=== PATIENT | male | born 1955 | race Asian ===

== ENCOUNTER 2021-03-26 18:43 | Emergency (ER) | payer OTHER ==
[~2021-03-26] VITALS: Ht 167.6 cm; Wt 86.2 kg
--- NOTE | 2021-03-26 18:43 | NUR ---
PT BIBRA 99 C/O LOW BLOOD SUGAR 30MG/DL. D10 GIVEN BY EMS SPECIAL EDUCATION TEACHING ASSISTANT. PT IS AAOX4, NOT IN RESPIRATORY DISTRESS, HOOKED TO PROGRESSIVE CARE MANAGER, KEPT RESTED AND COMFORTABLE. WILL CONTINUE TO MONITOR.
[2021-03-26 19:51] LABS: CALCIUM, SERUM 8.6 mg/dL (8.5-10.1); CREATININE 1.5 mg/dL (0.6-1.3); POTASSIUM 3.2 mmol/L (3.5-5.1)
[2021-03-26 19:57] LABS: ALBUMIN 3.1 g/dL (3.4-5.0); BILIRUBIN,DIRECT 0.2 mg/dL (0.0-0.2); BILIRUBIN,TOTAL 0.9 mg/dL (0.2-1.0); TOTAL PROTEIN, SERUM 6.7 g/dL (6.4-8.2)
--- NOTE | 2021-03-26 20:13 | NUR ---
JOON VEGA, DAUGHTER PADMINI FERRARI
[2021-03-26 20:20] LABS: BASOPHILS % (AUTO) 0.3 % (0.0-2.0); EOSINOPHILS % (AUTO) 1.9 % (0.0-6.0); HEMATOCRIT 45 % (39-51); HEMOGLOBIN 14.6 g/dL (13.5-17.5); MEAN CORPUSCULAR HGB CONC 32 g/dl (31.0-36.0); MEAN CORPUSCULAR VOLUME 91 fL (80-96); MONOCYTES # (AUTO) 0.6 K/uL (0.1-1.30); MONOCYTES % (AUTO) 5.3 % (2.0-12.0); NEUTROPHILS % (AUTO) 83.5 % (43.0-81.0); PLATELET COUNT (AUTO) 165 K/uL (150-450); RED BLOOD CELL COUNT(AUTO) 4.98 MIL/uL (4.5-6.0); WHITE BLOOD COUNT (AUTO) 10.7 K/uL (4.3-11.0)
[2021-03-26] MEDS ORDERED: ASPIRIN 81 MG TAB.CHEW PO ONE (20:30)
[2021-03-26] MEDS ORDERED: ASPIRIN 81 MG TAB.CHEW ONE (20:31)
[2021-03-26] MEDS ORDERED: CARVEDILOL 12.5 MG TABLET ONE (21:55)
[2021-03-26] MEDS ORDERED: CARVEDILOL 6.25 MG TABLET PO ONE (22:00)
--- NOTE | 2021-03-26 23:05 | NUR ---
MARKETING DEVELOPER BRYAN - [phone]
--- NOTE | 2021-03-26 23:08 | NUR ---
TRANSFER INFO: PT GOING TO [facility] [address] [address], DIRECT ADMIT TO ROOM 214-A ACCEPTED BY DR MARIN, RN FOR REPORT [phone], PLEASE GIVE REPORT AFTER 2330 ETA TO FOLLOW
--- NOTE | 2021-03-26 23:22 | NUR ---
[facility] ETA 0200 HOURS
[2021-03-26] MEDS ORDERED: hydrALAZINE HCL IV 20 MG VIAL ONE (23:25)
[2021-03-26] MEDS ORDERED: hydrALAZINE HCL IV 20 MG VIAL IV ONE (23:30)
--- NOTE | 2021-03-27 00:10 | NUR ---
REPORT GIVEN TO LINDSEY AT [facility]
[2021-03-27 01:07] VITALS: BP 151/85
--- NOTE | 2021-03-27 01:08 | NUR ---
PT PICKED UP BY [facility] FOR TRANSFER TO [facility]. ALL V/S STABLE AT TIME OF TRANSFER
== END 2021-03-27 01:18 | disposition short-term general hospital (02) ==
LOC: ER 19:30
DX: E11.649 Type 2 diabetes mellitus with hypoglycemia without coma (principal); N17.9 Acute kidney failure, unspecified; E87.6 Hypokalemia; R07.9 Chest pain, unspecified; R94.31 Abnormal electrocardiogram [ECG] [EKG]; J98.11 Atelectasis; I11.9 Hypertensive heart disease without heart failure; Z20.822 Contact with and (suspected) exposure to COVID-19
CPT/HCPCS: 36415; 71045; 80048; 80076; 82962 ×3; 83735; 83880; 84484; 85025; 87081; 87426; 93005; 96374; 99285; C9803; J0360

== ENCOUNTER 2022-08-07 22:57 | Inpatient (IN) | payer OTHER ==
[~2022-08-07] VITALS: Ht 175.3 cm; Wt 105.7 kg
--- NOTE | 2022-08-07 23:00 | NUR ---
PATIENT SENT TO RADIOLOGY FOR CT
--- NOTE | 2022-08-07 23:15 | NUR ---
PT BROUGHT IN BY AMBULANCE FROM SNF, WITH CHIEF COMPLAINT OFGLF. RECEIVED MECH VENT PATIENT WITH SETTINGS PRESCRIBED IN NO ACUTE RESPIRATORY DISTRESS. HOOKED TO THE MONITOR AND WILL CONTINUE TO ASSESS. AWAITING MD MACHADO.
--- NOTE | 2022-08-07 23:30 | NUR ---
Pt received trached w/ Raynaley #6 [facility] pt placed on same ordered settings received from facility: AC mode, rate 22, VT 500, FIO2 35%, PEEP +5. No distress noted at this time. Airway patent and secured. Alarms set and audible. Ambubag at bedside. Pt to be transported to CT scan.
--- NOTE | 2022-08-08 01:30 | NUR ---
PATIENT SENT TO RADIOLOGY FOR CT W/ CONTRAST
[2022-08-08] MEDS ORDERED: IOHEXOL-300 100 ML VIAL IV ONE (02:13)
[2022-08-08] MEDS ORDERED: CT SWABBABLE VALVE TRANS SET 1 EA INFUS.SET MC ONE (02:14)
[2022-08-08] MEDS ORDERED: IV NS 0.9% 250 ML IV ONE (02:14)
--- NOTE | 2022-08-08 03:00 | NUR ---
SECURED IV ACCESS ON L UA #20; PATENT AND FLUSHING WELL
[2022-08-08] MEDS ORDERED: LEVOFLOXACIN 500 MG /D5W 100ML 500 MG/100 ML PIGGYBACK IV ONE (04:30)
[2022-08-08] MEDS ORDERED: CLINDAMYCIN 600 MG in IV D5W 100 ML IV ONE (04:30)
[2022-08-08] MEDS ORDERED: LEVOFLOXACIN 500 MG /D5W 100ML 100 ML IV ONE (04:41)
[2022-08-08] MEDS ORDERED: CLINDAMYCIN 900 MG/6 ML VIAL ONE (04:41)
[2022-08-08 04:42] LABS: BASOPHILS % (AUTO) 0.5 % (0.0-2.0); EOSINOPHILS % (AUTO) 2.2 % (0.0-6.0); HEMATOCRIT 29 % (39-51); HEMOGLOBIN 8.9 g/dL (13.5-17.5); LYMPHOCYTES # (AUTO) 0.5 K/uL (0.8-4.8); LYMPHOCYTES % (AUTO) 5.3 % (20.0-44.0); MEAN CORPUSCULAR HGB CONC 31 g/dl (31.0-36.0); MEAN CORPUSCULAR VOLUME 91 fL (80-96); MONOCYTES # (AUTO) 0.4 K/uL (0.1-1.30); MONOCYTES % (AUTO) 4.8 % (2.0-12.0); NEUTROPHILS # (AUTO) 7.6 K/uL (1.8-8.9); NEUTROPHILS % (AUTO) 87.2 % (43.0-81.0); PLATELET COUNT (AUTO) 157 K/uL (150-450); RED BLOOD CELL COUNT(AUTO) 3.14 MIL/uL (4.5-6.0); WHITE BLOOD COUNT (AUTO) 8.8 K/uL (4.3-11.0)
[2022-08-08 04:50] LABS: CALCIUM, SERUM 8.5 mg/dL (8.5-10.1); CREATININE 2.8 mg/dL (0.6-1.3); POTASSIUM 5.7 mmol/L (3.5-5.1)
--- NOTE | 2022-08-08 05:39 | NUR ---
CALLED [facility] FOR HIGHER LEVEL OF CARE TRANSFER. SPOKE WITH MARCELLA, CHARGE NURSE. NO ENT SERVICE AVAILABLE.
--- NOTE | 2022-08-08 05:59 | NUR ---
SPOKE WITH EDWARD FROM [facility] TO INITIATE HIGHER LEVEL OF CARE TRANSFER. CLINICALS FAXED TO [phone]
--- NOTE | 2022-08-08 06:51 | NUR ---
SPOKE WITH SYLVIA FROM [facility] TRANSFER TO REQUEST HIGHER LEVEL OF CARE. ADVICE TO CALL BACK AFTER 0730.
--- NOTE | 2022-08-08 07:33 | NUR ---
PER PT'S DAUGHTER, TRACH WAS DONE AT [facility].
--- NOTE | 2022-08-08 07:43 | NUR ---
COVID Swab collected, sent to lab
--- NOTE | 2022-08-08 08:06 | NUR ---
CALLED [facility] [phone] PER BRANDY AT [facility] [address] UNTIL FURTHER NOTICE.
--- NOTE | 2022-08-08 08:10 | NUR ---
CALLED [facility] [phone] CLOSED TO HIGHER LEVEL OF CARE PER TONE.
--- NOTE | 2022-08-08 08:16 | NUR ---
CALLED [facility] [place] TRANSF[facility] [phone] MAHAD WILL REACH TO [facility].
--- NOTE | 2022-08-08 08:50 | NUR ---
DR. LIN FROM [facility] SPEAKING WITH DR. ANN.
[2022-08-08] MEDS ORDERED: ACETAMINOPHEN 325 MG TABLET PO PRN (10:30)
[2022-08-08] MEDS ORDERED: MAGNESIUM HYDROXIDE 30 ML UDC PO PRN (10:30)
[2022-08-08] MEDS ORDERED: ZOLPIDEM TARTRATE 5 MG TABLET PO PRN (10:30)
[2022-08-08] MEDS ORDERED: ONDANSETRON HCL/PF 4 MG/2 ML VIAL IVP PRN (10:30)
[2022-08-08] MEDS ORDERED: Z GUARD REMEDY 4 OZ OINT TP PRN (10:30)
[2022-08-08] MEDS ORDERED: MAG HYDROX/AL HYDROX/SIMETH 30 ML UDC PO PRN (10:30)
[2022-08-08] MEDS ORDERED: ATEN25TA GT (10:59)
[2022-08-08] MEDS ORDERED: INSU100V3 SQ (10:59)
[2022-08-08] MEDS ORDERED: NITR0.4T48 SL (10:59)
[2022-08-08] MEDS ORDERED: NUT.237L30 GT (10:59)
[2022-08-08] MEDS ORDERED: CLON0.1T GT (10:59)
[2022-08-08] MEDS ORDERED: NA P133E RC (10:59)
[2022-08-08] MEDS ORDERED: HYDR-4076 GT (10:59)
[2022-08-08] MEDS ORDERED: MAGN400O6 GT (10:59)
[2022-08-08] MEDS ORDERED: ISOS10TA2 GT (10:59)
[2022-08-08] MEDS ORDERED: INSU100V7 SQ (10:59)
[2022-08-08] MEDS ORDERED: HEPA50007 SQ (10:59)
[2022-08-08] MEDS ORDERED: ACET-868 GT (10:59)
[2022-08-08] MEDS ORDERED: LORA-259 GT (10:59)
[2022-08-08] MEDS ORDERED: CHLO473M5 MM (10:59)
[2022-08-08] MEDS ORDERED: SUCR1ORA15 GT (10:59)
[2022-08-08] MEDS ORDERED: FAMO40TA7 GT (10:59)
[2022-08-08] MEDS ORDERED: DOCU-141 GT (10:59)
[2022-08-08] MEDS ORDERED: FOLI0.8T2 GT (10:59)
[2022-08-08] MEDS ORDERED: BISA10SU11 RC (10:59)
[2022-08-08] MEDS ORDERED: POLY17PO4 GT (10:59)
[2022-08-08] MEDS ORDERED: ATOR40TA GT (10:59)
[2022-08-08] MEDS ORDERED: ASPI-1169 GT (10:59)
[2022-08-08] MEDS ORDERED: IPRA4AER IH ×2 (10:59)
[2022-08-08] MEDS ORDERED: OXYC10TA49 GT (10:59)
[2022-08-08] MEDS ORDERED: GLUC1KIT IM (10:59)
[2022-08-08] MEDS ORDERED: ACET-2605 GT (10:59)
[2022-08-08] MEDS ORDERED: SODIUM POLYSTYRENE SULFONATE 15 G/60 ML BOTTLE GT ONE (11:00)
[2022-08-08] MEDS ORDERED: DEXTROSE 50%-WATER 50 ML DISP.SYRIN IV PRN (11:00)
--- NOTE | 2022-08-08 11:28 | NUR ---
GOT BED 310 IN 25 MINUTES
--- NOTE | 2022-08-08 11:49 | NUR ---
HAND OFF REPORT GIVEN TO MARLIN NORIEGA IN 3W
[2022-08-08] MEDS ORDERED: NITROGLYCERIN 0.4 MG/TAB BOTTLE SL PRN (12:00)
[2022-08-08] MEDS ORDERED: IPRATROPIUM NEB FS 0.5 MG/2.5 ML AMPUL.NEB NEB PRN (12:00)
[2022-08-08] MEDS: BLOOD SUGAR DIAGNOSTIC 1 EACH STRIP IN SCH ×2 (12:00→17:10)
[2022-08-08] MEDS ORDERED: NA PHOS,M-B/NA PHOS,DI-BA 1 EA ENEMA RC PRN (12:00)
[2022-08-08] MEDS ORDERED: oxyCODONE/APAP (5/325 MG) 1 UDTAB TABLET GT PRN (12:00)
[2022-08-08] MEDS ORDERED: MAGNESIUM HYDROXIDE 30 ML UDC GT PRN (12:00)
[2022-08-08] MEDS ORDERED: ALBUTEROL FS 2.5 MG/0.5 ML VIAL.NEB NEB PRN (12:00)
[2022-08-08] MEDS ORDERED: BISACODYL SUPP (10 MG) 10 MG/SUPP.RECT SUPP.RECT RC PRN (12:00)
[2022-08-08] MEDS ORDERED: ACETAMINOPHEN ES 500 MG TABLET GT PRN (12:00)
[2022-08-08] MEDS ORDERED: ACETAMINOPHEN 650 MG/20.3 ML UDC GT PRN (12:30)
--- NOTE | 2022-08-08 12:43 | NUR ---
PT TRANSFERED ACLS PROTOCOL RT PRESENT AND BAGING PT. VITALS REMAINED STABLE THROUGHT THE TRANSFER TAKEN TO [facility], 310 ADMITTING NURSE WAS PRESENT AT BEDSIDE.
--- NOTE | 2022-08-08 15:09 | NUR ---
RT Pt awake and alert. Pt refused ABG- No SOB noted.
[2022-08-08] MEDS: ISOSORBIDE DINITRATE (10MG) 10 MG TABLET GT SCH ×2 (15:43→17:00)
[2022-08-08] MEDS: LORAZEPAM 1 MG TABLET GT PRN (15:50)
[2022-08-08] MEDS: hydrALAZINE HCL 25 MG TABLET GT SCH ×2 (15:52→17:00)
[2022-08-08] MEDS: CEFTRIAXONE 1 G in IV D5W 50 ML IV SCH (16:34)
[2022-08-08] MEDS: GLUCERNA 1.2 1,000 ML BOTTLE NG PRN (16:34)
[2022-08-08] MEDS: CHLORHEXIDINE GLUCONATE 15 ML UDC MM SCH (17:10)
[2022-08-08] MEDS: INSULIN GLARGINE, 100 UNIT/ML CARTRIDGE SQ SCH (17:18)
[2022-08-08] MEDS: INSULIN REGULAR, HUMAN 100 UNIT/ML 3 ML VIAL SQ PRN (17:21)
--- NOTE | 2022-08-08 17:30 | NUR ---
MICROBIOLOGICAL LABORATORY TECHNICIANCRM DYNAMICS DEVELOPER NOTES RECEIVED PATIENT FORM ER VIA GURNEY , NON VERBAL RELATED TO TRACHEOSTOMY , DIAGNOSIS OF PLUERAL EFFUSION AND SECONDARY TO CRISTÓBAL , PATIENT IS S/P GROUND LEVEL FALL AT SNF . KEPT COMFORTABLE TO BED AND BODY ASSESSMENT DONE PER PROTOCOL , V/S TAKEN AND RECORDED, PATIENT IS ABLE TO COMMUNICATE WITH SIGN LANGUAGE , IV ACCESS ON THE LEFT UPPER ARM #20 G SL AND RIGHT FA #20G SL , STARTED ON GT FEEDING OF GLUCERNA 1.2 @65 CC / H X 20 HOURS , NOTED WITH HIGH POTASSIUM AND KAYEXALATE GIVEN ORDERED , WITH PETERSON CATHETER UPON ADMISSION FROM SNF WITH YELLOW COLOR URINE , ALL DUE MEDS GIVEN ORDERED , IV ATB GIVEN ORDERED , PATIENT KEPT DRY AND CLEAN , C/O OF NECK PAIN AND PERCOCET GIVEN ORDERED AND WITH HELP , ALL BELONGINGS WERE ACCOUNTED FOR . WOUND DRESSING DONE ON THE RIGHT AND LEFT BUTTOCK , WOUND ON THE RIGHT LOWER LEG , GT SITE DRESSING WAS DONE , SAFETY PRECAUTIONS PROVIDED , SIDE RAILS UP X 2 , CALL LIGHT WITHIN REACH , BED ON LOWEST LOCK POSITION AND HOB AT ALL TIMES AND ENDORSED TO THE NEXT SHIFT .
--- NOTE | 2022-08-08 19:40 | NUR ---
SENIOR IOS DEVELOPER OPENING NOTE PATIENT SLEEPING IN BED, EASILY AWAKENED, PT NON-VERBAL BUT ABLE TO COMMUNICATE IN SIGN LANGUAGE, UNDERSTANDS TAGALOG. PATIENT STABLE ON CURRENT VENT SETTINGS, NO S/S OF DISTRESS OR SOB NOTED, BREATHING EVEN AND UNLABORED. PATIENT ON EXTERNAL HOT BLASTER READING SINUS RHYTHM WITH 1ST DEGREE BLOCK, HR: 63. PATIENT ON GTF GLUCERNA 1.2 @ 65 ML/HR X 20 HRS. IV ACCESS ON RFA #20G AND SRIRAM #20G INTACT AND SALINE LOCKED. EPTERSON CATH IN PLACE AND DRAINING YELLOW URINE BY GRAVITY. PER DAYSHIFT RN PATIENT HAD DIARRHEA TODAY, IF CONTINUES COLLECT STOOL SAMPLE FOR C. DIFF. SAFETY MEASURES IN PLACE: CALL LIGHT WITHIN REACH, SIDE RAILS UP X 3, BED LOCKED IN LOWEST POSITION, HOB ELEVATED, BED ALARM ON. WILL CONTINUE TO MONITOR PATIENT
[2022-08-08 20:00] VITALS: BP 159/76
[2022-08-08] MEDS ORDERED: FAMOTIDINE (20 MG) 20 MG TABLET ONE (21:54)
[2022-08-08] MEDS: SUCRALFATE 1 G/10 ML UDC GT SCH (21:57)
[2022-08-08] MEDS: ATORVASTATIN 40 MG TABLET GT SCH (21:57)
[2022-08-08] MEDS: FAMOTIDINE 40 MG TABLET GT SCH (21:57)
--- NOTE | 2022-08-08 21:58 | NUR ---
CLASSROOM AIDE NOTE PEPCID 40 MG TAB NOT AVAILABLE IN [facility]. JET PILOT JOSE ABLE TO GET 2 PEPCID 20 MG TABLETS TO MAKE THE 40 MG
[2022-08-09] VITALS: BP 160/85
[2022-08-09] MEDS: INSULIN REGULAR, HUMAN 100 UNIT/ML 3 ML VIAL SQ PRN ×4 (00:17→17:46)
[2022-08-09] MEDS: BLOOD SUGAR DIAGNOSTIC 1 EACH STRIP IN SCH ×4 (00:17→17:24)
[2022-08-09 03:53] LABS: OCCULT BLOOD STOOL NEGATIVE (NEGATIVE)
[2022-08-09 04:00] VITALS: BP 168/78
[2022-08-09 06:26] LABS: BASOPHILS % (AUTO) 0.3 % (0.0-2.0); EOSINOPHILS % (AUTO) 3.3 % (0.0-6.0); HEMATOCRIT 29 % (39-51); LYMPHOCYTES # (AUTO) 0.5 K/uL (0.8-4.8); LYMPHOCYTES % (AUTO) 7.6 % (20.0-44.0); MEAN CORPUSCULAR HGB CONC 32 g/dl (31.0-36.0); MEAN CORPUSCULAR VOLUME 90 fL (80-96); MONOCYTES # (AUTO) 0.5 K/uL (0.1-1.30); MONOCYTES % (AUTO) 7.2 % (2.0-12.0); NEUTROPHILS # (AUTO) 5.5 K/uL (1.8-8.9); NEUTROPHILS % (AUTO) 81.6 % (43.0-81.0); PLATELET COUNT (AUTO) 182 K/uL (150-450); RED BLOOD CELL COUNT(AUTO) 3.16 MIL/uL (4.5-6.0); WHITE BLOOD COUNT (AUTO) 6.7 K/uL (4.3-11.0)
--- NOTE | 2022-08-09 06:49 | NUR ---
INVESTMENT ADVISOR CLOSING NOTE PATIENT AWAKE IN BED, PT NON-VERBAL BUT ABLE TO COMMUNICATE IN SIGN LANGUAGE AND UNDERSTANDS TAGALOG. PATIENT STABLE ON CURRENT VENT SETTINGS, NO S/S OF DISTRESS OR SOB NOTED, BREATHING EVEN AND UNLABORED. PATIENT ON EXTERNAL CIGARETTE PAPER TESTER READING SINUS RHYTHM WITH 1ST DEGREE BLOCK, HR: 82. PATIENT ON GTF GLUCERNA 1.2 @ 65 ML/HR X 20 HRS. IV ACCESS ON RFA #20G AND SRIRAM #20G INTACT AND SALINE LOCKED. PETERSON CATH IN PLACE AND DRAINING YELLOW URINE BY GRAVITY. PATIENT HAD 2 EPISODES OF DIARRHEA, STOOL SAMPLE SENT TO LAB FOR C. DIFF TESTING AND STOOL OB. MEDICATIONS GIVEN ORDERED, PT NEEDS MET THROUGHOUT SHIFT, PATIENT TURNED AND REPOSITIONED, PT SUCTIONED. SAFETY MEASURES IN PLACE: CALL LIGHT WITHIN REACH, SIDE RAILS UP X 3, BED LOCKED IN LOWEST POSITION, HOB ELEVATED, BED ALARM ON. WILL ENDORSE TO DAYSHIFT RN FOR CONTINUITY OF CARE
--- NOTE | 2022-08-09 07:20 | NUR ---
RN OPENING NOTE RECEIVED PATIENT IN BED AWAKE, NON-VERBAL. NO SIGNS OF ACUTE DISTRESS NOTED. WITH TRACH TO MECHANICAL VENTILATOR WITH SETTINGS TOLERATING WELL. SUCTIONED SECRETIONS NEEDED. NOTED WITH IV ACCESS ON RIGHT FOREARM #20G AND LEFT UPPER ARM #20G, INTACT AND PATENT SALINE LOCKED. ON TELE MONITORING SHOWING SINUS RHYTHM HR @73. WITH G-TUBE INTACT AND PATENT, G-TUBE FEEDING OF GLUCERNA 1.2 @65ML/HR RUNNING, TOLERATING WELL, HOB ELEVATED AT ALL TIMES. F/C INTACT AND PATENT DRAINING CLEAR CHARISSA URINE VIA GRAVITY. SAFETY MEASURE IN PLACE. BED IN LOW AND LOCKED POSITION, SIDE RAILS UP, CALL LIGHT PLACED WITHIN EASY REACH. WILL CONTINUE TO MONITOR PATIENT.
[2022-08-09 07:26] LABS: CALCIUM, SERUM 8.3 mg/dL (8.5-10.1); CREATININE 2.5 mg/dL (0.6-1.3); PHOSPHORUS 4.4 mg/dL (2.5-4.9); POTASSIUM 4.8 mmol/L (3.5-5.1)
[2022-08-09 07:47] LABS: MAGNESIUM 2.9 mg/dL (1.8-2.4)
[2022-08-09 08:00] VITALS: BP 161/75
[2022-08-09] MEDS: DOCUSATE SODIUM LIQ 100 MG/10 ML UDC GT SCH (08:29)
[2022-08-09] MEDS: CHLORHEXIDINE GLUCONATE 15 ML UDC MM SCH ×2 (08:29→17:15)
[2022-08-09] MEDS: ASPIRIN 81 MG TAB.CHEW GT SCH (08:29)
[2022-08-09] MEDS: SUCRALFATE 1 G/10 ML UDC GT SCH ×2 (08:29→21:36)
[2022-08-09] MEDS: POLYETHYLENE GLYCOL 3350 17 GM POWD.PACK GT SCH ×2 (08:29→09:00)
[2022-08-09] MEDS: ATENOLOL 25 MG TABLET GT SCH (08:29)
[2022-08-09] MEDS: VIT B CMPLX 3/FA/VIT C/BIOTIN 1 TAB TABLET GT SCH (08:29)
[2022-08-09] MEDS: ISOSORBIDE DINITRATE (10MG) 10 MG TABLET GT SCH ×3 (08:30→17:16)
[2022-08-09] MEDS: hydrALAZINE HCL 25 MG TABLET GT SCH ×3 (08:30→17:16)
[2022-08-09] MEDS: HEPARIN SODIUM, PORCINE 5000 UNITS/1 ML VIAL SQ SCH ×2 (08:31→17:18)
[2022-08-09] MEDS: INSULIN GLARGINE, 100 UNIT/ML CARTRIDGE SQ SCH ×2 (08:32→17:39)
[2022-08-09] MEDS: FAMOTIDINE 40 MG TABLET GT SCH (09:00)
--- NOTE | 2022-08-09 09:50 | NUR ---
WOUND CARE CONSULT: PT PRESENTS WITH SCABS TO RT SIDE OF FACE AND NECK, RT LOWER LEG WOUND, RASH TO PERINEUM AND INNER THIGHS WITH SACRAL DEEP TISSUE INJURY EXTENDING TO BUTTOCKS, ALL PRESENT ON ADMISSION. DR REARDON AND DR OLSEN CALLED FOR SURGICAL AND DPM CONSULTS. PT IS ON ADONIS ISOFLEX LOW AIRLOSS BED. DISCUSSED SKIN PROTECTION WITH NURSING STAFF. MD IN AGREEMENT WITH PLAN OF CARE. KRISTEN BARROW NOTED. Addendum: 08/09/22 at 0951 by JENNIFER RIOS WNDNU Amended: Links added.
[2022-08-09] MEDS: CEFTRIAXONE 1 G in IV D5W 50 ML IV SCH (11:07)
[2022-08-09 12:00] VITALS: BP 152/60
[2022-08-09] MEDS: PROSOURCE / PROSTAT (PYXIS) 30 ML UDC GT SCH (17:16)
[2022-08-09] MEDS: CLOTRIMAZOLE/BETAMETASONE DIPROPIONATE 15 GM TUBE TP SCH (17:19)
[2022-08-09] MEDS: VANCOMYCIN HCL 125 MG/2.5 ML ORAL.SUSP GT SCH (17:28)
--- NOTE | 2022-08-09 18:53 | NUR ---
RN CLOSING NOTE PATIENT IN BED AWAKE, NON-VERBAL. NO SIGNS OF ACUTE DISTRESS NOTED. WITH TRACH SHILEY XLT #6 TO MECHANICAL VENTILATOR WITH THE FOLLOWING SETTINGS: AC 22, TV 500, FIO2 35%, PEEP 5, TOLERATING WELL. SUCTIONED SECRETIONS NEEDED. WITH IV ACCESS ON RIGHT FOREARM #20G AND LEFT UPPER ARM #20G, INTACT AND PATENT SALINE LOCKED. CONTINUE ON TELE MONITORING SHOWING SINUS RHYTHM HR @70. WITH G-TUBE INTACT AND PATENT, G-TUBE FEEDING OF GLUCERNA 1.2 @65ML/HR RUNNING, TOLERATED WELL, HOB ELEVATED AT ALL TIMES. F/C INTACT AND PATENT DRAINING CLEAR CHARISSA URINE VIA GRAVITY. SAFETY MEASURE IN PLACE. BED ALARM ON. BED IN LOW AND LOCKED POSITION, SIDE RAILS UP, CALL LIGHT PLACED WITHIN EASY REACH. WILL ENDORSE TO NEXT SHIFT FOR CONTINUITY OF CARE.
--- NOTE | 2022-08-09 19:52 | NUR ---
noc rn opening received patient in bed alert and oriented, able to make needs known using sign language. no s/s of apparent distress-- vent dependent. denies any pain nor discomfort at this time. tele monitor reading sr with PVC's on the tele monitor at this time. patient is on Isolation for C.diff, isolation in place and will be strictly followed. IV site on rt. fa flushing well on saline lock. Schultz catheter draining via gravity. G-tube running Glucerna @65mls/hr. Safety in place-- bed in locked position, side rails up X4, call light within reach. will continue with patient's plan of care.
[2022-08-09] MEDS: FAMOTIDINE (20 MG) 20 MG TABLET GT SCH (21:37)
[2022-08-09] MEDS: ATORVASTATIN 40 MG TABLET GT SCH (21:37)
--- NOTE | 2022-08-09 22:50 | NUR ---
noc rn note Patient became SB per seafood technology specialist airto, charge nurse came to check on patient while I was on the phone with another patient's family member. per report patient was unresponsive and pulseless per Charge nurse Daisy. Emilee beckford was called right after.
--- NOTE | 2022-08-09 22:54 | NUR ---
noc rn note patient reading PEA. compressions was done at this time. 1st Epi pushed at this time as well. Dr. Moreno in the room with other code blue members.
--- NOTE | 2022-08-09 22:54 | NUR ---
noc rn note Blood sugar 134. Compressions initiated at this time.
--- NOTE | 2022-08-09 23:00 | NUR ---
noc rn note Pulse noted. blood pressure 167/112 hr 80 on the monitor.
--- NOTE | 2022-08-09 23:05 | NUR ---
noc rn kailyn BP- 168/110, pulse of 124 after epi push
--- NOTE | 2022-08-09 23:08 | NUR ---
noc rn note Patient survived. Transferred to ICU- 261. Report Given to LEANN Chau for continuity of patient care.
--- NOTE | 2022-08-09 23:10 | NUR ---
noc rn note Hospitalist Dr. Chatterjee notified at this time. Patient in ICU RM 261
--- NOTE | 2022-08-09 23:35 | NUR ---
CHIP MACHINE OPERATOR. S/P CODE BLUE FROM 3 EKRON PT FOUND UNRESPONSIVE.RECEIVED THE PT AWAKE, RESTLESS, PULLING IVS. MIGUEL SOFT WRIST RESTRAINT INITIATED. HOB ELEVATED, GT INTACT. MIGUEL UPPER AND LOWER EXTREMITY SWELLON. FC PATENT. PT IS CHRONICE VENT TRACH.. MULTIPLE WOUND . BLOOD PRESSURE LOW. NOTIFIED MD PAGE.WILL CONTINUE TO MONITOR.
--- NOTE | 2022-08-09 23:45 | NUR ---
RT NOTE CALLED TO PT ROOM FOR CODE BLUE. ACLS PROTOCOL INITIATED. ROSC ACHIEVED. EKG AND ABG DONE. PT TRANSFERED TO ICU ROOM 261. WILL CONT TO MONITOR.
[2022-08-09] MEDS ORDERED: PHENYLEPHRINE 10 MG/ML VIAL ONE (23:51)
[2022-08-10] VITALS (26 sets, daily range): BP systolic 70–167; BP diastolic 50–98
[2022-08-10] MEDS ORDERED: NOREPINEPHRINE 32 MG in IV NS 0.9% 218 ML IV PRN ×2
[2022-08-10] MEDS ORDERED: PHENYLEPHRINE 100 MG in IV NS 0.9% 240 ML IV PRN ×2
--- NOTE | 2022-08-10 00:30 | NUR ---
noc rn note Tried calling next of kin Sachi Lizama, Daughter, #[phone], no answer, left a message and the # to call. ICU charge nurse, Thu ocampo. Critique done. Code blue sheet filled up and signed by Doctor Law. Original given to ICU. Will do Risk Management online.
[2022-08-10] MEDS: BLOOD SUGAR DIAGNOSTIC 1 EACH STRIP IN SCH ×5 (00:56→23:46)
[2022-08-10] MEDS: VANCOMYCIN HCL 125 MG/2.5 ML ORAL.SUSP GT SCH ×5 (00:58→23:46)
--- NOTE | 2022-08-10 01:00 | NUR ---
noc rn note Patient was found unresponsive and pulseless at around 2250 by Charge Nurse Daisy after monitor teachDenis announced to check on patient. Geno BUCHANAN and I just finished cleaning patient not even an hour ago because patient asked to be changed. Patient was still doing okay at that time, alert and oriented. The call light was within reach. I was talking on the phone with a Family member for one of my patient when this happened. It happened so suddenly. Patient was having PEA,Compressions and Code Blue was initiated right away. Patient now on ICU RM 261. Medications and belongings transferred with patient. Needed documentations filled out and charted. Will do incident report.
[2022-08-10 01:39] LABS: CALCIUM, SERUM 7.6 mg/dL (8.5-10.1); CREATININE 2.3 mg/dL (0.6-1.3); POTASSIUM 4.9 mmol/L (3.5-5.1)
[2022-08-10 01:50] LABS: BILIRUBIN,TOTAL 0.5 mg/dL (0.2-1.0); TOTAL PROTEIN, SERUM 6.5 g/dL (6.4-8.2)
--- NOTE | 2022-08-10 04:35 | NUR ---
ADVERTISING CLERK. AM CARE GIVEN. REMAINING SAME VENT SETTINGS TOLERATED WELL. SAT 98% NO ACUTE DISTRESS NOTED. TELEPHONE INFORMATION CLERK SHOWING NSR. IV RT UPPER ARM MIDLINE. TKO RUNNING. HOB ELEVATED. FC PATENT. URINE DRAINING. HOB ELEVATED. TURN AND REPOSITION Q2H.WILL CONTINUE TO MONITER VITAL SIGNS.
[2022-08-10 05:13] LABS: BASOPHILS % (AUTO) 0.1 % (0.0-2.0); EOSINOPHILS % (AUTO) 0.4 % (0.0-6.0); HEMATOCRIT 29 % (39-51); HEMOGLOBIN 8.9 g/dL (13.5-17.5); LYMPHOCYTES # (AUTO) 0.5 K/uL (0.8-4.8); LYMPHOCYTES % (AUTO) 5.2 % (20.0-44.0); MEAN CORPUSCULAR HGB CONC 31 g/dl (31.0-36.0); MEAN CORPUSCULAR VOLUME 91 fL (80-96); MONOCYTES # (AUTO) 0.6 K/uL (0.1-1.30); MONOCYTES % (AUTO) 6.7 % (2.0-12.0); NEUTROPHILS # (AUTO) 8.1 K/uL (1.8-8.9); NEUTROPHILS % (AUTO) 87.6 % (43.0-81.0); PLATELET COUNT (AUTO) 187 K/uL (150-450); RED BLOOD CELL COUNT(AUTO) 3.16 MIL/uL (4.5-6.0); WHITE BLOOD COUNT (AUTO) 9.2 K/uL (4.3-11.0)
[2022-08-10] MEDS: GLUCERNA 1.2 1,000 ML BOTTLE NG PRN (06:19)
--- NOTE | 2022-08-10 07:35 | NUR ---
ICU/RN PT HAS TRACHEOSTOMY ON THE VENT AC MODE FIO2-35%,SAT O2-100%.V/S STABLE ,AFEBRILE.NO PAIN REPORTED AT THIS TIME.PT IS AWAKE ,ALERT.FOLLOWS COMMAND.BILATERAL SOFT WRIST RESTRAINS REMOVED.G-TUBE INFUSING WITH GLUCERNA NO RESIDUAL.ABDOMEN DISTENDED.BOWEL SOUNDS PRESENT.RIGHT UPPER ARM MID LINE.F/C IN PLACE DRAINING WITH YELLOW URINE.PT HAS MULTIPLY WOUNDS ,SKIN TEARS ALL OVER THE BODY AND LOWER EXTREMITIES.REDNESS ON CESAR AREA.LABS REVIEW.MD AWARE.SUCTION PROVIDED.REPOSITION FOR COMFORT.
[2022-08-10] MEDS: POLYETHYLENE GLYCOL 3350 17 GM POWD.PACK GT SCH (09:00)
--- NOTE | 2022-08-10 09:00 | NUR ---
ICU/RN DUE MEDS ARE GIVEN ORDERED.
[2022-08-10] MEDS ORDERED: EPINEPHRINE (1:10,000) SYRINGE 1 MG/10 ML DISP.SYRIN IVP ONE ×2 (09:03→11:48)
[2022-08-10] MEDS: VIT B CMPLX 3/FA/VIT C/BIOTIN 1 TAB TABLET GT SCH (09:05)
[2022-08-10] MEDS: CHLORHEXIDINE GLUCONATE 15 ML UDC MM SCH ×2 (09:05→16:51)
[2022-08-10] MEDS: SUCRALFATE 1 G/10 ML UDC GT SCH ×2 (09:05→21:16)
[2022-08-10] MEDS: ASPIRIN 81 MG TAB.CHEW GT SCH (09:05)
[2022-08-10] MEDS: DOCUSATE SODIUM LIQ 100 MG/10 ML UDC GT SCH (09:05)
[2022-08-10] MEDS: FAMOTIDINE (20 MG) 20 MG TABLET GT SCH ×2 (09:06→21:17)
[2022-08-10] MEDS: hydrALAZINE HCL 25 MG TABLET GT SCH ×3 (09:06→16:51)
[2022-08-10] MEDS: ATENOLOL 25 MG TABLET GT SCH (09:06)
[2022-08-10] MEDS: HEPARIN SODIUM, PORCINE 5000 UNITS/1 ML VIAL SQ SCH ×2 (09:07→16:43)
[2022-08-10] MEDS: PROSOURCE / PROSTAT (PYXIS) 30 ML UDC GT SCH ×2 (09:07→16:50)
[2022-08-10] MEDS: INSULIN GLARGINE, 100 UNIT/ML CARTRIDGE SQ SCH ×2 (09:08→16:52)
[2022-08-10] MEDS: CLOTRIMAZOLE/BETAMETASONE DIPROPIONATE 15 GM TUBE TP SCH ×2 (09:08→16:42)
[2022-08-10] MEDS: ISOSORBIDE DINITRATE (10MG) 10 MG TABLET GT SCH ×3 (09:10→16:41)
[2022-08-10] MEDS: LORAZEPAM INJ 2 MG/ML VIAL IV PRN (09:38)
[2022-08-10] MEDS: FUROSEMIDE 100 MG/10 ML VIAL IV SCH ×3 (09:40→16:41)
--- NOTE | 2022-08-10 11:05 | NUR ---
ICU/RN CT OF CHEST DONE ORDERED.
[2022-08-10] MEDS: CEFTRIAXONE 1 G in IV D5W 50 ML IV SCH (12:11)
[2022-08-10 15:06] LABS: BILIRUBIN,URINE NEGATIVE (NEGATIVE); COLOR,URINE YELLOW (YELLOW); LEUKOCYTE ESTERASE ,URINE NEGATIVE (NEGATIVE); NITRITE, URINE NEGATIVE (NEGATIVE); PH,URINE 6.5 (5.0-8.0); PROTEIN,URINE 2+ mg/dl (NEGATIVE); UGLUCOSE NEGATIVE (NEGATIVE); UROBILINOGEN,URINE 0.2 EU/dL (0.2)
[2022-08-10 15:33] LABS: CREATININE, URINE 50.1 MG/DL (30.0-125.0)
[2022-08-10 15:55] LABS: BACTERIA,URINE 2+ /HPF (None Seen); RBC,URINE 51-80 /HPF (0-2); WBC,URINE 0-2 /HPF (0-3)
[2022-08-10 15:56] LABS: SQUAMOUS EPITHELIAL CELL,UR Few /HPF (None Seen)
--- NOTE | 2022-08-10 18:05 | NUR ---
ICU/RN PM CARE PROVIDED.WOUND DRESSING DONE ORDERED. DUE MEDS ARE GIVEN .SUCTION PROVIDED.REPOSITION FOR COMFORT.CONTINUE MONITORING.
--- NOTE | 2022-08-10 19:45 | NUR ---
RN NOTE RECEIVED PT IN BED, ASLEEP AT THIS TIME, EASILY AROUSABLE. NO FACIAL GRIMACING NOTED AT THIS TIME. ON VENT/TRACH, CURRENT SETTINGS WELL BRENNA, NO ACUTE RESP DISTRESS NOTED. AFEBRILE. ATTACHED TO BEDSIDE LIVING SPECIALIST CURRENT READING NSR. IV ACCESS ON LILI-ML TKO, PATENT. GT IN PLACED, PATENT, 0 RESIDUAL, INFUSING GLUCERNA AT 50ML/HR, WELL BRENNA. HOB ELEVATED. FC IN PLACED,PATENT DRAINING CLEAR YELLOW URINE. SAFETY PRECAUTION IMPLEMENTED. CONTACT ISOLATION OBSERVED AT ALL TIMES. WILL CONT POC. FAMILY AT BEDSIDE
[2022-08-10] MEDS: ATORVASTATIN 40 MG TABLET GT SCH (21:16)
[2022-08-10] MEDS: INSULIN REGULAR, HUMAN 100 UNIT/ML 3 ML VIAL SQ PRN (23:47)
[2022-08-11] VITALS (18 sets, daily range): BP systolic 101–173; BP diastolic 66–92
[2022-08-11] MEDS: CLONIDINE HCL 0.1 MG TABLET GT PRN ×2 (03:03→23:47)
[2022-08-11] MEDS: VANCOMYCIN HCL 125 MG/2.5 ML ORAL.SUSP GT SCH ×4 (05:23→23:53)
[2022-08-11] MEDS: BLOOD SUGAR DIAGNOSTIC 1 EACH STRIP IN SCH ×4 (05:43→23:53)
[2022-08-11] MEDS: INSULIN REGULAR, HUMAN 100 UNIT/ML 3 ML VIAL SQ PRN ×2 (05:44→12:19)
[2022-08-11 05:57] LABS: BASOPHILS % (AUTO) 0.4 % (0.0-2.0); EOSINOPHILS % (AUTO) 3.4 % (0.0-6.0); HEMATOCRIT 30 % (39-51); HEMOGLOBIN 9.4 g/dL (13.5-17.5); LYMPHOCYTES # (AUTO) 0.7 K/uL (0.8-4.8); LYMPHOCYTES % (AUTO) 13.9 % (20.0-44.0); MEAN CORPUSCULAR HGB CONC 31 g/dl (31.0-36.0); MEAN CORPUSCULAR VOLUME 92 fL (80-96); MONOCYTES # (AUTO) 0.5 K/uL (0.1-1.30); MONOCYTES % (AUTO) 8.9 % (2.0-12.0); NEUTROPHILS % (AUTO) 73.4 % (43.0-81.0); PLATELET COUNT (AUTO) 193 K/uL (150-450); RED BLOOD CELL COUNT(AUTO) 3.31 MIL/uL (4.5-6.0); WHITE BLOOD COUNT (AUTO) 5.4 K/uL (4.3-11.0)
[2022-08-11] MEDS: GLUCERNA 1.2 1,000 ML BOTTLE NG PRN (06:22)
--- NOTE | 2022-08-11 06:45 | NUR ---
RN NOTE PT REMAINS IN STABLE CONDTION. VSS. NO SIGNIFICANT CHANGES NOTED. CURRENT VENT SETTINGS WELL TOLERATED, O2 SAT 99%. AFEBRILE. BEDSIDE VP OF TECHNOLOGY CURRENT READING NSR. PT ABLE TO MAKE NEEDS KNOWN, MOUTH WORDS AND SIMPLE YES/NO QUESTIONS. ALL DUE MEDICATIONS GIVEN ORDERED. GTF ORDERED, WELL BRENNA, 0 RESIDUAL, GT FLUSH W 200ML WATER ORDERED, WELL BRENNA. PT NOTED W X1 BOWEL MOVEMENT, LIQUID, DARK GREENISH IN COLOR, NO FOUL ODOR. FC IN PLACED, PATENT, DRAINING CLEAR YELLOW URINE BY GRAVITY, URINE OUTPUT THROUGHOUT THE SHIFT 1500CC. CONTACT ISOLATION OBSERVED AT ALL TIMES. TURN/REPOS Q2H/PRN. PM CARE, WOUND CARE DONE. HOB ELEVATED AT ALL TIMES. SAFETY PRECUATION OBSERVED AT ALL TIMES. WILL ENDORSE TO AM NURSE SHIFT FOR PEARL
[2022-08-11 06:51] LABS: CALCIUM, SERUM 8.1 mg/dL (8.5-10.1); CREATININE 2.4 mg/dL (0.6-1.3); MAGNESIUM 2.6 mg/dL (1.8-2.4); PHOSPHORUS 5.3 mg/dL (2.5-4.9); POTASSIUM 3.9 mmol/L (3.5-5.1)
--- NOTE | 2022-08-11 07:10 | NUR ---
CREATIVE PROJECT MANAGER NOTE RECEIVED PATINET IN BED RESTING,ON MECHANICAL VENT SETTING PRESCRIBED,ALERT ORIENTED X1-2,[place],NOTED HEAD FOR YES AND NO QUESTIONS,ON G-TUBE FEEDING GLUCERNA 50CC/HR CHECKED PLACEMENT IN PLACE NO RESIDUAL NOTED,PETERSON CATH IN PLACE,URINE DRAINING YELLOW BY GRAVITY,IV ACCESS ON RIGHT UPPER ARM MID LINE,SAFETY MEASURE IMPLEMENT BED IN LOW POSITION AND LOCKED,HEAD OF THE BED ELEVATED CONTINUE TO MONITOR.
[2022-08-11] MEDS: ASPIRIN 81 MG TAB.CHEW GT SCH (08:37)
[2022-08-11] MEDS: SUCRALFATE 1 G/10 ML UDC GT SCH ×2 (08:37→21:13)
[2022-08-11] MEDS: FAMOTIDINE (20 MG) 20 MG TABLET GT SCH ×2 (08:37→21:13)
[2022-08-11] MEDS: hydrALAZINE HCL 25 MG TABLET GT SCH ×3 (08:38→16:55)
[2022-08-11] MEDS: CHLORHEXIDINE GLUCONATE 15 ML UDC MM SCH ×2 (08:39→16:55)
[2022-08-11] MEDS: ISOSORBIDE DINITRATE (10MG) 10 MG TABLET GT SCH ×3 (08:39→16:55)
[2022-08-11] MEDS: VIT B CMPLX 3/FA/VIT C/BIOTIN 1 TAB TABLET GT SCH (08:39)
[2022-08-11] MEDS: ATENOLOL 25 MG TABLET GT SCH (08:39)
[2022-08-11] MEDS: POLYETHYLENE GLYCOL 3350 17 GM POWD.PACK GT SCH (08:40)
[2022-08-11] MEDS: DOCUSATE SODIUM LIQ 100 MG/10 ML UDC GT SCH (08:40)
[2022-08-11] MEDS: HEPARIN SODIUM, PORCINE 5000 UNITS/1 ML VIAL SQ SCH ×2 (08:42→16:59)
[2022-08-11] MEDS: PROSOURCE / PROSTAT (PYXIS) 30 ML UDC GT SCH ×2 (08:44→17:03)
[2022-08-11] MEDS: CLOTRIMAZOLE/BETAMETASONE DIPROPIONATE 15 GM TUBE TP SCH ×2 (08:46→17:09)
[2022-08-11] MEDS: INSULIN GLARGINE, 100 UNIT/ML CARTRIDGE SQ SCH ×2 (09:04→17:15)
[2022-08-11] MEDS: CEFTRIAXONE 1 G in IV D5W 50 ML IV SCH (12:08)
[2022-08-11] MEDS ORDERED: BUMETANIDE INJ 16 MG in IV NS 0.9% 16 ML IV ONE (13:00)
--- NOTE | 2022-08-11 13:07 | NUR ---
RN NOTE PATIENT VERY AGITATED AND PULLING OUT HIS TRACH,IV LINES AND G-TUBE,NOTIFIED DR RODRIGUEZ, ORDERED ACUTE SOFT BILATERAL WRIST RESTRAIN FOR PATIENT SAFETY,NOTIFIED FAMILY THEY AGREED FOR THAT,CONTINUE TO MONITOR.
[2022-08-11] MEDS: LORAZEPAM INJ 2 MG/ML VIAL IV PRN (15:42)
--- NOTE | 2022-08-11 16:30 | NUR ---
RN NOTE PATIENT TRANSFERRED TO MIN UNIT ON TELE MONITORING,AT ROOM 119. MD ORDERED PER ACLS PROTOCOL WITH RT,NOTIFIED FAMILY CONTINUE TO MONITOR.
--- NOTE | 2022-08-11 18:27 | NUR ---
RN NOTE PATIENT REMAIN ALERT ORIETNEDX1-2 ON MECHANICAL VENT SETTING PRESCRIBED, NO SOB NOT ACUTE DISTRESS NOTED,ON G-TUBE FEEDING,ALL DUE MEDS GIVEN MD ORDERED KEPT CLEAN AND DRY,WOUND TREATMENT DONE,TURNED AND REPOSITIONED EVERY 2 HOURS,BILATERAL WRIST SOFT RESTRAIN IN PLACE,CHECKED EVERY 15MINS FOR SKIN BREAKDOWN,AND CIRCULATION,KEPT HEAD OF THE BED ELEVATED ALL THE TIME,ALL NEEDS MET,WILL ENDORSE NEXT COMING SHIFT FOR CONTINUATION OF CARE.
--- NOTE | 2022-08-11 20:00 | NUR ---
CAR CLERK PULLMAN OPENING NOTE PATIENT AWAKE IN BED, PT NON-VERBAL. PATIENT ON MECHANICAL VENT, TOLERATING WELL, NO S/S OF DISTRESS OR SOB NOTED, BREATHING EVEN AND UNLABORED. PATIENT ON EXTERNAL ALL AROUND PATTERNMAKER READING SINUS RHYTHM WITH PVC'S, HR: 83. IV ACCESS LILI MIDLINE INTACT AND INFUSING BUMEX @ 10 ML/HR. GTUBE INTACT AND INFUSING GLUCERNA @ 50 ML/HR. PETERSON CATHETER IN PLACE AND DRAINING YELLOW URINE BY GRAVITY. BILATERAL SOFT WRIST RESTRAINTS IN PLACE D/T PULLING OF LINES, TRACH AND AGITATION. SPOKE TO DAUGHTER KENZIE AND AUNT KENNY ON GROUP PHONE CALL AND GAVE THEM A BRIEF UPDATE ON PATIENT. SAFETY MEASURES IN PLACE: CALL LIGHT WITHIN REACH, SIDE RAILS UP X 3, BED LOCKED IN LOWEST POSITION, HOB ELEVATED, BED ALARM ON. WILL CONTINUE TO MONITOR PATIENT
[2022-08-11] MEDS: ATORVASTATIN 40 MG TABLET GT SCH (21:13)
--- NOTE | 2022-08-11 23:50 | NUR ---
PRODUCT AMBASSADOR NOTE PATIENT'S BP 177/87, HR: 80. PRN CLONIDINE 0.1 MG Q6H GIVEN ORDERED VIA GTUBE. WILL CONTINUE TO MONITOR PATIENT
[2022-08-12] VITALS: BP 177/87
[2022-08-12] MEDS: INSULIN REGULAR, HUMAN 100 UNIT/ML 3 ML VIAL SQ PRN ×4 (00:21→17:42)
[2022-08-12 04:00] VITALS: BP 167/80
[2022-08-12] MEDS: LORAZEPAM INJ 2 MG/ML VIAL IV PRN (04:30)
--- NOTE | 2022-08-12 04:35 | NUR ---
SYRUP BLENDER NOTE PATIENT RESTLESS AND PULLING AT RESTRAINTS, BP ELEVATED D/T RESTLESSNESS. PRN ATIVAN 1 MG IV Q2H GIVEN ORDERED. WILL CONTINUE TO MONITOR PATIENT
[2022-08-12] MEDS: VANCOMYCIN HCL 125 MG/2.5 ML ORAL.SUSP GT SCH ×3 (06:05→17:38)
[2022-08-12] MEDS: BLOOD SUGAR DIAGNOSTIC 1 EACH STRIP IN SCH ×3 (06:05→17:17)
--- NOTE | 2022-08-12 07:03 | NUR ---
SOFTWARE TOOLS BUILD ENGINEER CLOSING NOTE PATIENT SLEEPING IN BED, PT NON-VERBAL BUT ABLE TO MOUTH WORDS. PATIENT ON MECHANICAL VENT, TOLERATING WELL, NO S/S OF DISTRESS OR SOB NOTED, BREATHING EVEN AND UNLABORED. PATIENT ON EXTERNAL MERCHANT MILLER READING SINUS RHYTHM WITH PVC'S, HR: 67. IV ACCESS LILI MIDLINE AND RIGHT WRIST #20G INTACT, BOTH SALINE LOCKED. GTUBE INTACT AND INFUSING GLUCERNA @ 50 ML/HR X 20HRS. PETERSON CATHETER IN PLACE AND DRAINING YELLOW URINE BY GRAVITY, 2300 ML OUTPUT. BILATERAL SOFT WRIST RESTRAINTS IN PLACE D/T PULLING OF LINES, TRACH AND AGITATION. MEDICATIONS GIVEN ORDERED, PT NEEDS MET THROUGHOUT SHIFT, WOUND CARE DONE, PT TURNED AND REPOSITIONED. PT HAD 1 EPISODE OF DIARRHEA THIS SHIFT. SAFETY MEASURES IN PLACE: CALL LIGHT WITHIN REACH, SIDE RAILS UP X 3, BED LOCKED IN LOWEST POSITION, HOB ELEVATED, BED ALARM ON. WILL ENDORSE TO DAYSHIFT RN FOR CONTINUITY OF CARE
[2022-08-12 07:13] LABS: BASOPHILS % (AUTO) 0.3 % (0.0-2.0); EOSINOPHILS % (AUTO) 3.9 % (0.0-6.0); HEMATOCRIT 28 % (39-51); HEMOGLOBIN 8.8 g/dL (13.5-17.5); LYMPHOCYTES # (AUTO) 0.5 K/uL (0.8-4.8); LYMPHOCYTES % (AUTO) 9.4 % (20.0-44.0); MEAN CORPUSCULAR HGB CONC 32 g/dl (31.0-36.0); MEAN CORPUSCULAR VOLUME 90 fL (80-96); MONOCYTES # (AUTO) 0.5 K/uL (0.1-1.30); MONOCYTES % (AUTO) 8.9 % (2.0-12.0); NEUTROPHILS # (AUTO) 3.9 K/uL (1.8-8.9); NEUTROPHILS % (AUTO) 77.5 % (43.0-81.0); PLATELET COUNT (AUTO) 175 K/uL (150-450); WHITE BLOOD COUNT (AUTO) 5.1 K/uL (4.3-11.0)
--- NOTE | 2022-08-12 07:38 | NUR ---
PHOTOGRAMMETRIC ENGINEER OPENING NOTE RECEIVED PATIENT SLEEPING IN BED, PT NON-VERBAL BUT ABLE TO MOUTH WORDS. PATIENT ON MECHANICAL VENT, TOLERATING WELL, NO S/S OF DISTRESS OR SOB NOTED AT THIS TIME. BREATHING EVEN AND UNLABORED. PATIENT ON EXTERNAL OFFICE HELPER READING SINUS RHYTHM. IV ACCESS LILI MIDLINE AND RIGHT WRIST #20G INTACT,PATENT AND FLUSHING WELL. ON GTUBE. NO RESIDUAL VOLUME NOTED. PETERSON CATHETER IN PLACE AND DRAINING YELLOW URINE BY GRAVITY, PT ON BILATERAL SOFT WRIST RESTRAINTS IN PLACE. NO SKIN OR CIRCULATION ISSUES NOTED AT THIS TIME. ALL SAFETY MEASURES IN PLACE: CALL LIGHT WITHIN REACH, SIDE RAILS UP X 3, BED LOCKED IN LOWEST POSITION, HOB ELEVATED, BED ALARM ON.
[2022-08-12 08:00] VITALS: BP 181/93
[2022-08-12 08:15] LABS: ALBUMIN 2.2 g/dL (3.4-5.0); BILIRUBIN,TOTAL 0.3 mg/dL (0.2-1.0); CALCIUM, SERUM 8.2 mg/dL (8.5-10.1); CREATININE 2.3 mg/dL (0.6-1.3); MAGNESIUM 2.2 mg/dL (1.8-2.4); PHOSPHORUS 4.5 mg/dL (2.5-4.9); POTASSIUM 3.6 mmol/L (3.5-5.1); TOTAL PROTEIN, SERUM 6.9 g/dL (6.4-8.2)
[2022-08-12] MEDS: DOCUSATE SODIUM LIQ 100 MG/10 ML UDC GT SCH (09:00)
[2022-08-12] MEDS: POLYETHYLENE GLYCOL 3350 17 GM POWD.PACK GT SCH (09:00)
[2022-08-12] MEDS: CHLORHEXIDINE GLUCONATE 15 ML UDC MM SCH ×2 (09:27→16:40)
[2022-08-12] MEDS: ASPIRIN 81 MG TAB.CHEW GT SCH (09:27)
[2022-08-12] MEDS: VIT B CMPLX 3/FA/VIT C/BIOTIN 1 TAB TABLET GT SCH (09:27)
[2022-08-12] MEDS: FAMOTIDINE (20 MG) 20 MG TABLET GT SCH ×2 (09:27→21:38)
[2022-08-12] MEDS: SUCRALFATE 1 G/10 ML UDC GT SCH ×2 (09:27→21:38)
[2022-08-12] MEDS: hydrALAZINE HCL 25 MG TABLET GT SCH ×3 (09:28→16:39)
[2022-08-12] MEDS: ATENOLOL 25 MG TABLET GT SCH (09:28)
[2022-08-12] MEDS: ISOSORBIDE DINITRATE (10MG) 10 MG TABLET GT SCH ×3 (09:29→16:39)
[2022-08-12] MEDS: HEPARIN SODIUM, PORCINE 5000 UNITS/1 ML VIAL SQ SCH ×2 (09:32→16:41)
[2022-08-12] MEDS: PROSOURCE / PROSTAT (PYXIS) 30 ML UDC GT SCH ×2 (09:36→17:00)
[2022-08-12] MEDS: FUROSEMIDE 100 MG/10 ML VIAL IV SCH ×3 (09:36→16:40)
[2022-08-12] MEDS: CLOTRIMAZOLE/BETAMETASONE DIPROPIONATE 15 GM TUBE TP SCH ×2 (09:37→17:17)
[2022-08-12] MEDS: INSULIN GLARGINE, 100 UNIT/ML CARTRIDGE SQ SCH ×2 (11:00→17:40)
[2022-08-12 12:00] VITALS: BP 181/84
[2022-08-12] MEDS: CLONIDINE HCL 0.1 MG TABLET GT PRN ×2 (12:09→21:38)
[2022-08-12] MEDS: CEFTRIAXONE 1 G in IV D5W 50 ML IV SCH (12:09)
[2022-08-12 16:00] VITALS: BP 150/80
--- NOTE | 2022-08-12 19:29 | NUR ---
SOCIAL MEDIA MARKETING SPECIALIST CLOSING NOTE PATIENT AWAKE IN BED., PT NON-VERBAL BUT ABLE TO MOUTH WORDS. PATIENT ON MECHANICAL VENT, TOLERATING WELL, NO S/S OF DISTRESS OR SOB NOTED AT THIS TIME. BREATHING EVEN AND UNLABORED. PATIENT ON EXTERNAL SUSTAINABLE DESIGN COORDINATOR READING SINUS RHYTHM 68 WITH PVC. IV ACCESS LILI MIDLINE AND RIGHT WRIST #20G INTACT,PATENT AND FLUSHING WELL. ON GTUBE. NO RESIDUAL VOLUME NOTED. PETERSON CATHETER IN PLACE AND DRAINING YELLOW URINE BY GRAVITY, PT ON BILATERAL SOFT WRIST RESTRAINTS IN PLACE. NO SKIN OR CIRCULATION ISSUES NOTED AT THIS TIME. PT PULLS ON TUBE OF MECHANICAL VENTILATOR. ALL SAFETY MEASURES IN PLACE: CALL LIGHT WITHIN REACH, SIDE RAILS UP X 3, BED LOCKED IN LOWEST POSITION, HOB ELEVATED, BED ALARM ON. ENDORSED TO INCOME TAX ADVISOR RN FOR CONTINUITY OF CARE
--- NOTE | 2022-08-12 19:45 | NUR ---
NUTRITION SERVICES ASSISTANT OPENING NOTES - RECEIVED PATIENT AWAKE. A/O X1-2, MOUTHING WORDS AND WANTS TO WALK. EXPLAINED HE IS ON BED REST AND CONNECTED TO VENT. BREATHING EVEN AND NON-LABORED, ON MECHANICAL VENT TOLERATING CURRENT SETTINGS WELL. NOT IN ACUTE DISTRESS. NO S/S OF PAIN OR DISCOMFORT AT THIS TIME. ON TELE MONITOR READING SINUS BRADYCARDIA WITH PVC AT 59 BPM. HAS RIGHT UPPER ARM MIDLINE #18G AND RIGHT WRIST IV ACCESS #20G, BOTH SALINE LOCKED. NO S/S OF INFILTRATION NOTED. HAS INDWELLING PETERSON CATHETER DRAINING TO BAG BY GRAVITY. HAS BILATERAL SOFT WRIST RESTRAINTS. SAFETY PRECAUTIONS IN PLACE: BED LOCKED AND IN LOW POSITION, SIDE RAILS UP X3, CALL LIGHT WITHIN REACH. WILL CONTINUE PLAN OF CARE. Addendum: 08/12/22 at 2232 by October RITCHIE NORIEGA HAS G-TUBE CONNECTED TO FEEDING OF GLUCERNA 1.2 RUNNING AT 50 ML/HR.
[2022-08-12 20:00] VITALS: BP 159/77
--- NOTE | 2022-08-12 21:31 | NUR ---
SPOKE WITH EDWIGE WELLINGTONMICHAEL AND HER AUNT, CAROLYNE ASKING FOR THE CM OR MD TO CALL THEM TO DISCUSS THE PLAN OF CARE. CM CONSULT ORDERED.
[2022-08-12] MEDS: ATORVASTATIN 40 MG TABLET GT SCH (21:38)
[2022-08-13] VITALS: BP 156/79
[2022-08-13] MEDS: VANCOMYCIN HCL 125 MG/2.5 ML ORAL.SUSP GT SCH ×4 (00:11→17:12)
[2022-08-13] MEDS: BLOOD SUGAR DIAGNOSTIC 1 EACH STRIP IN SCH ×4 (00:32→16:56)
[2022-08-13] MEDS: INSULIN REGULAR, HUMAN 100 UNIT/ML 3 ML VIAL SQ PRN ×4 (00:32→16:57)
[2022-08-13] MEDS: LORAZEPAM 1 MG TABLET GT PRN ×2 (02:01→12:43)
--- NOTE | 2022-08-13 02:03 | NUR ---
PATIENT RESTLESS, DISCONNECTING VENT AND TRYING TO GET OUT OF BED. PRN ATIVAN 2MG ADMINISTERED. RESTRAINTS ON.
[2022-08-13 04:00] VITALS: BP 167/83
--- NOTE | 2022-08-13 04:29 | NUR ---
NOTIFIED HOSPITALIST MIMI THAT PATIENT'S BP 167/83. NO NEW ORDER. WILL ADMINISTER PRN CLONIDINE 0.1 MG.
[2022-08-13] MEDS: CLONIDINE HCL 0.1 MG TABLET GT PRN (04:48)
[2022-08-13] MEDS: GLUCERNA 1.2 1,000 ML BOTTLE NG PRN (04:54)
--- NOTE | 2022-08-13 06:54 | NUR ---
HOUSEKEEPING/LAUNDRY CLOSING NOTES - PATIENT SLEEPING, EASY TO AROUSE. ABLE TO RELAY NEEDS, WHITE BOARD AND MARKER PROVIDED. PERIODS OF CONFUSION AND RESTLESSNESS NOTED. NO RESPIRATORY OR CARDIAC DISTRESS NOTED. AFEBRILE. NO C/O PAIN AT THIS TIME. ON TELE MONITOR READING SINUS RHYTHM WITH OCCASIONAL PVC AT 78 BPM. RIGHT UPPER ARM MIDLINE INTACT, PATENT AND FLUSHING. CLEAR YELLOW URINE OUTPUT NOTED. YELLOW LIQUID STOOL NOTED. CONTACT ISOLATION OBSERVED. BILATERAL SOFT WRIST RESTRAINTS IN PLACE, SKIN AND CIRCULATION WNL. TOLERATING G-TUBE FEEDING WELL, 15ML RESIDUAL NOTED. ABLE TO MOVE ALL EXTREMITIES. ALL DUE MEDS GIVEN AND NEEDS ATTENDED. SAFETY PRECAUTIONS MAINTAINED. WILL ENDORSE TO NEXT SHIFT FOR PEARL.
[2022-08-13 07:02] LABS: BASOPHILS % (AUTO) 0.3 % (0.0-2.0); EOSINOPHILS % (AUTO) 4.7 % (0.0-6.0); HEMATOCRIT 28 % (39-51); HEMOGLOBIN 8.9 g/dL (13.5-17.5); LYMPHOCYTES # (AUTO) 0.5 K/uL (0.8-4.8); LYMPHOCYTES % (AUTO) 10.8 % (20.0-44.0); MEAN CORPUSCULAR HGB CONC 32 g/dl (31.0-36.0); MEAN CORPUSCULAR VOLUME 90 fL (80-96); MONOCYTES # (AUTO) 0.5 K/uL (0.1-1.30); MONOCYTES % (AUTO) 10.3 % (2.0-12.0); NEUTROPHILS # (AUTO) 3.7 K/uL (1.8-8.9); NEUTROPHILS % (AUTO) 73.9 % (43.0-81.0); PLATELET COUNT (AUTO) 184 K/uL (150-450); RED BLOOD CELL COUNT(AUTO) 3.15 MIL/uL (4.5-6.0)
[2022-08-13 07:21] LABS: ALBUMIN 2.2 g/dL (3.4-5.0); BILIRUBIN,TOTAL 0.4 mg/dL (0.2-1.0); CALCIUM, SERUM 8.2 mg/dL (8.5-10.1); CREATININE 2.1 mg/dL (0.6-1.3); PHOSPHORUS 4.5 mg/dL (2.5-4.9); POTASSIUM 3.4 mmol/L (3.5-5.1); TOTAL PROTEIN, SERUM 6.8 g/dL (6.4-8.2)
[2022-08-13 08:00] VITALS: BP 173/88
[2022-08-13] MEDS: VIT B CMPLX 3/FA/VIT C/BIOTIN 1 TAB TABLET GT SCH (08:05)
[2022-08-13] MEDS: CHLORHEXIDINE GLUCONATE 15 ML UDC MM SCH ×2 (08:05→16:03)
[2022-08-13] MEDS: DOCUSATE SODIUM LIQ 100 MG/10 ML UDC GT SCH (08:05)
[2022-08-13] MEDS: SUCRALFATE 1 G/10 ML UDC GT SCH ×2 (08:05→20:43)
[2022-08-13] MEDS: ASPIRIN 81 MG TAB.CHEW GT SCH (08:05)
[2022-08-13] MEDS: FAMOTIDINE (20 MG) 20 MG TABLET GT SCH ×2 (08:06→20:43)
[2022-08-13] MEDS: POLYETHYLENE GLYCOL 3350 17 GM POWD.PACK GT SCH (08:08)
[2022-08-13] MEDS: HEPARIN SODIUM, PORCINE 5000 UNITS/1 ML VIAL SQ SCH ×2 (08:14→16:05)
[2022-08-13] MEDS: ISOSORBIDE DINITRATE (10MG) 10 MG TABLET GT SCH ×3 (08:16→16:05)
[2022-08-13] MEDS: hydrALAZINE HCL 25 MG TABLET GT SCH ×3 (08:17→16:05)
[2022-08-13] MEDS: ATENOLOL 25 MG TABLET GT SCH (08:17)
[2022-08-13] MEDS: PROSOURCE / PROSTAT (PYXIS) 30 ML UDC GT SCH ×2 (08:20→16:06)
[2022-08-13] MEDS: CLOTRIMAZOLE/BETAMETASONE DIPROPIONATE 15 GM TUBE TP SCH ×2 (08:20→16:40)
[2022-08-13] MEDS: INSULIN GLARGINE, 100 UNIT/ML CARTRIDGE SQ SCH ×2 (09:00→17:15)
--- NOTE | 2022-08-13 09:00 | NUR ---
INSULIN GLARGINE IS NOT AVAILABLE, INFORMED PHARMACY. BLOOD GLUCOSE IS 98
[2022-08-13] MEDS: POTASSIUM CHLORIDE 20 MEQ TAB.PRT.SR PO SCH ×3 (09:50→11:44)
[2022-08-13] MEDS: FUROSEMIDE 100 MG/10 ML VIAL IV SCH ×3 (09:50→16:39)
[2022-08-13] MEDS: CEFTRIAXONE 1 G in IV D5W 50 ML IV SCH (11:12)
[2022-08-13 12:00] VITALS: BP 166/94
[2022-08-13 16:00] VITALS: BP 160/90
--- NOTE | 2022-08-13 18:46 | NUR ---
PATIENT IS AWAKE RESTING COMFORTABLY IN BED ,SOFT BILATERAL RESTRAINTS IN PLACE, NO SIGNS OF IN DISTRESS, BREATHING ON A MECHANICAL VENTILATOR WITH FIO2-35%, SPO2-98-100%, PETERSON DRAINING WELL. SAFETY MEASURES APPLIED, BED IN LOW POSITION LOCKED, SIDE RAILS UPX3, CALL LIGHT WITHIN REACH.
--- NOTE | 2022-08-13 19:30 | NUR ---
RN NOTE RECEIVED PT IN BED, ON SEMI FINCH'S, AAO X 1, IN NO ACUTE DISTRESS, SATURATION AT 97% ON SHILEY#6 CONNECTED TO MECHANICAL VENT WITH PRESCRIBED SETTINGS:AC 18, TV 450, FIO2 35%, PEEP 5, SR ON THE MONITOR, HR IS 81. LILI MIDLINE PATENT AND FLUSHING WELL, SALINE LOCKED. PETERSON CATHETER DRAINING TO A CLEAR, YELLOW OUTPUT. SOFT WRIST RESTRAINST IN PLACE, SKIN AND CIRCULATION CHECKED AND ARE WNL. GTUBE IN PLACE, POSITIVE PLACEMENT NOTED, WITH GLUCERNA AT 50 ML/HR. APPROPRIATE ISOLATION PRECAUTION AND SAFETY MEASURES IN PLACE, BED IS LOCKED AND AT LOWEST POSITION, HOB ELEVATED, CALL LIGHT WITHIN REACH OF PATIENT. WILL CONT TO MONITOR AND REASSESS.
[2022-08-13 20:00] VITALS: BP 158/80
[2022-08-13] MEDS: ATORVASTATIN 40 MG TABLET GT SCH (20:44)
--- NOTE | 2022-08-13 21:50 | NUR ---
RN NOTE TELEPHONE CALL FROM PT'S FAMILY, SPOKE WITH ZAFAR, REGARDING UPDATES ON PT STATUS, DISCUSSED POSS PLACEMENT OF RECTAL TUBE BEC OF LOOSE STOOLS WHICH LIKELY AFFECTS HEALING OF L BUTTOCK WOUND, THEY ARE AMENABLE. ALSO THEY ARE ASKING POSS WOUND VAC USE,WILL ENDORSE TO AM SHIFT RN TO RELAY TO WOUND CARE TEAM. SNELLER HAND AWARE
[2022-08-14] VITALS: BP 159/92
[2022-08-14] MEDS: VANCOMYCIN HCL 125 MG/2.5 ML ORAL.SUSP GT SCH ×5 (00:27→23:16)
[2022-08-14] MEDS: BLOOD SUGAR DIAGNOSTIC 1 EACH STRIP IN SCH ×5 (00:27→23:26)
[2022-08-14] MEDS: INSULIN REGULAR, HUMAN 100 UNIT/ML 3 ML VIAL SQ PRN ×5 (00:33→23:27)
[2022-08-14 05:30] VITALS: BP 175/95
[2022-08-14] MEDS: CLONIDINE HCL 0.1 MG TABLET GT PRN (05:37)
[2022-08-14 07:06] LABS: BASOPHILS % (AUTO) 0.2 % (0.0-2.0); EOSINOPHILS % (AUTO) 2.6 % (0.0-6.0); HEMATOCRIT 30 % (39-51); HEMOGLOBIN 9.4 g/dL (13.5-17.5); LYMPHOCYTES # (AUTO) 0.5 K/uL (0.8-4.8); LYMPHOCYTES % (AUTO) 7.7 % (20.0-44.0); MEAN CORPUSCULAR HGB CONC 32 g/dl (31.0-36.0); MEAN CORPUSCULAR VOLUME 90 fL (80-96); MONOCYTES # (AUTO) 0.5 K/uL (0.1-1.30); MONOCYTES % (AUTO) 8.8 % (2.0-12.0); NEUTROPHILS # (AUTO) 4.8 K/uL (1.8-8.9); NEUTROPHILS % (AUTO) 80.7 % (43.0-81.0); PLATELET COUNT (AUTO) 207 K/uL (150-450); RED BLOOD CELL COUNT(AUTO) 3.33 MIL/uL (4.5-6.0)
[2022-08-14] MEDS: DOCUSATE SODIUM LIQ 100 MG/10 ML UDC GT SCH (07:44)
[2022-08-14] MEDS: POLYETHYLENE GLYCOL 3350 17 GM POWD.PACK GT SCH (07:44)
[2022-08-14 08:00] VITALS: BP 152/76
--- NOTE | 2022-08-14 08:00 | NUR ---
BRANCH CUSTOMER SERVICE REPRESENTATIVE NOTE PATIENT IS AWAKE RESTING COMFORTABLY IN BED ,SOFT BILATERAL RESTRAINTS IN PLACE, UNABLE TO REMOVE AT THIS TIME, PATIENT AT RISK FOR FALL, NO SIGNS OF IN DISTRESS, BREATHING ON A MECHANICAL VENTILATOR WITH FIO2-35%, SPO2-99%, WITH PETERSON DRAINING WELL. BED IN LOW POSITION LOCKED, SIDE RAILS UPX3, CALL LIGHT WITHIN REACH. SAFETY MEASURES IMPLEMENTED, WILL CONTINUE TO MONITOR.
[2022-08-14] MEDS: CHLORHEXIDINE GLUCONATE 15 ML UDC MM SCH ×2 (08:04→16:10)
[2022-08-14] MEDS: ISOSORBIDE DINITRATE (10MG) 10 MG TABLET GT SCH ×3 (08:05→16:12)
[2022-08-14] MEDS: FAMOTIDINE (20 MG) 20 MG TABLET GT SCH ×2 (08:05→20:38)
[2022-08-14] MEDS: ASPIRIN 81 MG TAB.CHEW GT SCH (08:05)
[2022-08-14] MEDS: SUCRALFATE 1 G/10 ML UDC GT SCH ×2 (08:05→20:38)
[2022-08-14] MEDS: VIT B CMPLX 3/FA/VIT C/BIOTIN 1 TAB TABLET GT SCH (08:05)
[2022-08-14] MEDS: hydrALAZINE HCL 25 MG TABLET GT SCH ×3 (08:05→16:11)
[2022-08-14] MEDS: ATENOLOL 25 MG TABLET GT SCH (08:06)
[2022-08-14] MEDS: PROSOURCE / PROSTAT (PYXIS) 30 ML UDC GT SCH ×2 (08:07→16:13)
[2022-08-14] MEDS: INSULIN GLARGINE, 100 UNIT/ML CARTRIDGE SQ SCH ×2 (08:14→17:34)
[2022-08-14] MEDS: LORAZEPAM INJ 2 MG/ML VIAL IV PRN (08:18)
[2022-08-14] MEDS: CARVEDILOL 12.5 MG TABLET PO SCH ×2 (08:35→20:45)
[2022-08-14] MEDS: POTASSIUM CHLORIDE 20 MEQ TAB.PRT.SR PO SCH ×3 (08:36→11:27)
[2022-08-14] MEDS: FUROSEMIDE 40 MG/4 ML VIAL IV SCH ×3 (08:36→16:10)
[2022-08-14] MEDS: HEPARIN SODIUM, PORCINE 5000 UNITS/1 ML VIAL SQ SCH (08:37)
[2022-08-14] MEDS: CLOTRIMAZOLE/BETAMETASONE DIPROPIONATE 15 GM TUBE TP SCH ×2 (08:38→16:43)
[2022-08-14 08:46] LABS: ALBUMIN 2.5 g/dL (3.4-5.0); BILIRUBIN,TOTAL 0.5 mg/dL (0.2-1.0); CALCIUM, SERUM 8.5 mg/dL (8.5-10.1); CREATININE 2.3 mg/dL (0.6-1.3); PHOSPHORUS 5.1 mg/dL (2.5-4.9); POTASSIUM 3.6 mmol/L (3.5-5.1); TOTAL PROTEIN, SERUM 7.7 g/dL (6.4-8.2)
[2022-08-14] MEDS: GLUCERNA 1.2 1,000 ML BOTTLE NG PRN (10:55)
[2022-08-14 12:00] VITALS: BP 130/59
[2022-08-14] MEDS: CEFTRIAXONE 1 G in IV D5W 50 ML IV SCH (12:46)
[2022-08-14 16:00] VITALS: BP 149/67
--- NOTE | 2022-08-14 16:40 | NUR ---
RN NOTE DR. TROTTER AT BED SIDE AT THIS TIME, ORDERED TO DISCONTINUE HEPARIN AT THIS TIME DUE TO HEMATURIA. ORDERS CARRIED OUT. HEPARIN RETURNED TO P[facility]XIS
--- NOTE | 2022-08-14 19:00 | NUR ---
RN NOTE RECEIVED PT IN BED, ON SEMI FINCH'S, AAO X 1, IN NO ACUTE DISTRESS, SATURATION AT 97% ON SHILEY#6 CONNECTED TO MECHANICAL VENT WITH PRESCRIBED SETTINGS:AC 18, TV 450, FIO2 35%, PEEP 5, SR ON THE MONITOR, HR IS 74. LILI MIDLINE PATENT AND FLUSHING WELL, SALINE LOCKED. PETERSON CATHETER DRAINING TO A REDDISH OUTPUT,PER CHE TROTTER IS AWARE, ORDERED TO HOLD OFF ON ANTICOAGULANTS FOR NOW UNTIL RESOLVED. SOFT WRIST RESTRAINTS IN PLACE, SKIN AND CIRCULATION CHECKED AND ARE WNL. GTUBE IN PLACE, POSITIVE PLACEMENT NOTED, WITH GLUCERNA AT 50 ML/HR. RECTAL TUBE DRAINING TO GRAVITY. CONTACT ISOLATION PRECAUTION AND SAFETY MEASURES IN PLACE, BED IS LOCKED AND AT LOWEST POSITION, HOB ELEVATED, CALL LIGHT WITHIN REACH OF PATIENT. WILL CONT TO MONITOR AND REASSESS.
--- NOTE | 2022-08-14 19:04 | NUR ---
RN CLOSING NOTES PATIENT SLEEPING, EASY TO AROUSE. ABLE TO RELAY NEEDS, WHITE BOARD AND MARKER PROVIDED. PERIODS OF CONFUSION AND RESTLESSNESS NOTED. NO RESPIRATORY OR CARDIAC DISTRESS NO COMPLAINS OF PAIN AT THIS TIME. ON TELE MONITOR READING SR 77 RIGHT UPPER ARM MIDLINE INTACT, RUNNING TKO T 10ML/HR. PATENT AND FLUSHING. RED TINTED URINE, NOTIFIED AND HEPARIN WAS DISCONTINUED. DVT PUMPS ORDERED PRN. FLEXISEAL IN PLACE, DRAINING LIQUID STOOL. CONTACT ISOLATION OBSERVED. BILATERAL SOFT WRIST RESTRAINTS IN PLACE, SKIN AND CIRCULATION WITHIN NORMAL LIMIT. TOLERATING G-TUBE FEEDING WELL, NO RESIDUAL. ABLE TO MOVE ALL EXTREMITIES. ALL DUE MEDS GIVEN AND NEEDS ATTENDED. SAFETY PRECAUTIONS MAINTAINED. BED IN LOWEST POSITION, SIDE RAILS UP X2. WILL ENDORSE TO NEXT SHIFT FOR CONTINUING OF CARE.
[2022-08-14 20:00] VITALS: BP 153/71
[2022-08-14] MEDS: ATORVASTATIN 40 MG TABLET GT SCH (21:15)
[2022-08-15] VITALS (8 sets, daily range): BP systolic 130–165; BP diastolic 66–82
[2022-08-15] MEDS: CLONIDINE HCL 0.1 MG TABLET GT PRN (04:27)
[2022-08-15] MEDS: VANCOMYCIN HCL 125 MG/2.5 ML ORAL.SUSP GT SCH ×3 (05:29→17:15)
[2022-08-15] MEDS: BLOOD SUGAR DIAGNOSTIC 1 EACH STRIP IN SCH ×3 (05:33→17:15)
[2022-08-15] MEDS: INSULIN REGULAR, HUMAN 100 UNIT/ML 3 ML VIAL SQ PRN ×3 (05:33→17:20)
[2022-08-15 06:22] LABS: BASOPHILS % (AUTO) 0.2 % (0.0-2.0); EOSINOPHILS % (AUTO) 3.8 % (0.0-6.0); HEMATOCRIT 29 % (39-51); LYMPHOCYTES # (AUTO) 0.6 K/uL (0.8-4.8); LYMPHOCYTES % (AUTO) 11.7 % (20.0-44.0); MEAN CORPUSCULAR HGB CONC 31 g/dl (31.0-36.0); MEAN CORPUSCULAR VOLUME 89 fL (80-96); MONOCYTES # (AUTO) 0.6 K/uL (0.1-1.30); MONOCYTES % (AUTO) 11.4 % (2.0-12.0); NEUTROPHILS # (AUTO) 3.7 K/uL (1.8-8.9); NEUTROPHILS % (AUTO) 72.9 % (43.0-81.0); PLATELET COUNT (AUTO) 198 K/uL (150-450); WHITE BLOOD COUNT (AUTO) 5.1 K/uL (4.3-11.0)
[2022-08-15 06:40] LABS: CALCIUM, SERUM 8.1 mg/dL (8.5-10.1); CREATININE 2.1 mg/dL (0.6-1.3); MAGNESIUM 1.9 mg/dL (1.8-2.4); PHOSPHORUS 3.7 mg/dL (2.5-4.9); POTASSIUM 3.6 mmol/L (3.5-5.1)
--- NOTE | 2022-08-15 07:15 | NUR ---
SENIOR EDUCATION SPECIALIST OPENING NOTES RECEIVED PATIENT SLEEPING, EASILY AROUSED, ALERT TO SELF ONLY,MOUTHING WORDS. ON SHILEY#6 CONNECTED TO MECHANICAL VENT WITH PRESCRIBED SETTINGS:AC 18, TV 450, FIO2 35%, PEEP 5. ON TELE MONITOR READING SR 74. NO RESPIRATORY OR CARDIAC DISTRESS NO COMPLAINS OF PAIN AT THIS TIME. IV ACCESS ON RIGHT UPPER ARM MIDLINE SALINE LOCKED, PATENT AND FLUSHING. PETERSON CATHETER DRAINING CHARISSA COLORED URINE VIA GRAVITY, NO BLEEDING NOR SEDIMENTS NOTED. DVT PUMP ON LEFT LEG ON. FLEXISEAL IN PLACE, DRAINING LIQUID STOOL. CONTACT ISOLATION OBSERVED FOR ACTIVE C.DIFF. BILATERAL SOFT WRIST RESTRAINTS IN PLACE, CHECKED CIRCULATION INTACT AND WNL. TOLERATING G-TUBE FEEDING OF GLUCERNA AT 50 ML/HR WELL, NO RESIDUAL AT THE MOMENT. SAFETY MEASURES IN PLACE: BED IN LOWEST AND LOCKED POSITION, SIDE RAILS UP X2. CALL LIGHT WITHIN EASY REACH. WILL CONTINUE TO MONITOR.
[2022-08-15] MEDS: DOCUSATE SODIUM LIQ 100 MG/10 ML UDC GT SCH (09:00)
[2022-08-15] MEDS: ISOSORBIDE DINITRATE (10MG) 10 MG TABLET GT SCH ×3 (09:17→16:08)
[2022-08-15] MEDS: CHLORHEXIDINE GLUCONATE 15 ML UDC MM SCH ×2 (09:17→16:07)
[2022-08-15] MEDS: PROSOURCE / PROSTAT (PYXIS) 30 ML UDC GT SCH ×2 (09:17→16:07)
[2022-08-15] MEDS: POLYETHYLENE GLYCOL 3350 17 GM POWD.PACK GT SCH (09:17)
[2022-08-15] MEDS: CLOTRIMAZOLE/BETAMETASONE DIPROPIONATE 15 GM TUBE TP SCH ×2 (09:17→16:09)
[2022-08-15] MEDS: VIT B CMPLX 3/FA/VIT C/BIOTIN 1 TAB TABLET GT SCH (09:17)
[2022-08-15] MEDS: ASPIRIN 81 MG TAB.CHEW GT SCH (09:18)
[2022-08-15] MEDS: FAMOTIDINE (20 MG) 20 MG TABLET GT SCH ×2 (09:18→21:14)
[2022-08-15] MEDS: SUCRALFATE 1 G/10 ML UDC GT SCH ×2 (09:19→21:14)
[2022-08-15] MEDS: hydrALAZINE HCL 25 MG TABLET GT SCH ×3 (09:20→16:08)
[2022-08-15] MEDS: CARVEDILOL 12.5 MG TABLET PO SCH ×2 (09:20→21:15)
[2022-08-15] MEDS: POTASSIUM CHLORIDE 20 MEQ TAB.PRT.SR PO SCH ×3 (09:25→11:02)
[2022-08-15] MEDS: FUROSEMIDE 40 MG/4 ML VIAL IV SCH ×3 (09:25→16:07)
[2022-08-15] MEDS: INSULIN GLARGINE, 100 UNIT/ML CARTRIDGE SQ SCH ×2 (09:42→16:13)
[2022-08-15] MEDS: GLUCERNA 1.2 1,000 ML BOTTLE NG PRN (09:56)
[2022-08-15] MEDS: CEFTRIAXONE 1 G in IV D5W 50 ML IV SCH (11:08)
--- NOTE | 2022-08-15 13:00 | NUR ---
RN NOTES - RELEASED PT FROM WRIST RESTRAINTS, DAUGHTER AND PT'S SISTER ARE BOTH AT BEDSIDE, WILL MONITOR PT CLOSELY.
--- NOTE | 2022-08-15 15:12 | NUR ---
RN NOTES - PATIENT COMPLAINS OF 7/10 BACK PAIN, DAUGHTER IS AT BEDSIDE. GIVEN 1000 MG OF TYLENOL THROUGH G-TUBE. PLACED PT BACK ON RESTRAINTS, PATIENT HAS BECOME RESTLESS AND TRYING TO PULL TUBES. NOTE: TYLENOL 500 ON OMNICELL SHOWS AVAILABLE ON ONE MACHINE BUT WHEN CHECKED THERE AREN'T AVAILABLE, GOT THE MEDS FROM THE 2ND OMNICELL.
--- NOTE | 2022-08-15 18:52 | NUR ---
INSPECTOR RADAR AND ELECTRONICS CLOSING NOTES PATIENT SLEEPING, EASILY AROUSED, CONFUSED ALERT TO SELF ONLY, MOUTHING WORDS, HAS WHITE BOARD. STILL ON SHILEY#6 CONNECTED TO MECHANICAL VENT WITH PRESCRIBED SETTINGS:AC 18, TV 450, FIO2 35%, PEEP 5. TELE MONITOR READING SR 71 WITH PVCS. DENIES PAIN AT THIS TIME. IV ACCESS ON RIGHT UPPER ARM MIDLINE SALINE LOCKED, PATENT AND FLUSHING WELL. PETERSON CATHETER DRAINED BLOOD TINGED URINE OF ABOUT 1550 ML. DVT PUMP ON LEFT LEG ON. FLEXISEAL DRAINED ABOUT 200 ML OF LIQUID STOOL. BILATERAL SOFT WRIST RESTRAINTS IN PLACE, CHECKED CIRCULATION INTACT AND WNL. TOLERATING G-TUBE FEEDING OF GLUCERNA AT 50 ML/HR WELL, NO RESIDUAL AT THE MOMENT, FLUSHED 200 ML OF WATER Q6H. ALL NEEDS MET, ALL DUE MEDS GIVEN. SAFETY MEASURES MAINTAINED: BED IN LOWEST AND LOCKED POSITION, SIDE RAILS UP X2. CALL LIGHT WITHIN EASY REACH. WILL ENDORSE TO SCREEN PRINTING MACHINE OPERATOR HELPER NURSE.
--- NOTE | 2022-08-15 19:05 | NUR ---
RN OPENING NOTES RECEIVED IN BED, AAO X2, MOUTHING WORDS, HAS WHITE BOARD TO MAKE NEEDS KNOWN. MV ON TRACH SHILEY#6 WITH PRESCRIBED SETTINGS: AC 18, TV 450, FIO2 35%, PEEP 5. TELE MONITOR READING SR 71 WITH PVCS. DENIES PAIN AT THIS TIME. IV ACCESS ON LILI MIDLINE SALINE LOCK, INTACT AND FLUSHING WELL. HAS BILATERAL SOFT WRIST RESTRAINTS, CHECKED FOR SKIN AND CIRCULATION. GTF RUNNING GLUCERNA AT 50 ML/HR, TOLERATING WELL, NO RESIDUAL NOTED. PETERSON CATHETER INTACT AND PATENT, DRAINING CLEAR YELLOW URINE, SLIGHTLY BLOOD TINGED. DVT PUMP ON LEFT LEG ON. FLEXISEAL NOTED, INTACT AND DRAINING WELL. SAFETY MEASURES IN PLACE: BED LOCKED AND IN LOWEST POSITION, CALL LIGHT WITHIN REACH, SIDE RAILS UP X2.
[2022-08-15] MEDS: ATORVASTATIN 40 MG TABLET GT SCH (21:14)
[2022-08-16] VITALS (7 sets, daily range): BP systolic 143–165; BP diastolic 67–89
[2022-08-16] MEDS: VANCOMYCIN HCL 125 MG/2.5 ML ORAL.SUSP GT SCH ×4 (00:08→18:21)
[2022-08-16] MEDS: BLOOD SUGAR DIAGNOSTIC 1 EACH STRIP IN SCH ×4 (00:20→17:10)
[2022-08-16] MEDS: INSULIN REGULAR, HUMAN 100 UNIT/ML 3 ML VIAL SQ PRN ×5 (00:21→17:19)
--- NOTE | 2022-08-16 00:23 | NUR ---
RN NOTE PATIENT'S BLOOD SUGAR IS 170. PATIENT REFUSED 3 UNITS OF INSULIN
[2022-08-16 06:55] LABS: BASOPHILS % (AUTO) 0.2 % (0.0-2.0); EOSINOPHILS % (AUTO) 3.7 % (0.0-6.0); HEMATOCRIT 28 % (39-51); LYMPHOCYTES # (AUTO) 0.5 K/uL (0.8-4.8); LYMPHOCYTES % (AUTO) 10.9 % (20.0-44.0); MEAN CORPUSCULAR HGB CONC 32 g/dl (31.0-36.0); MEAN CORPUSCULAR VOLUME 90 fL (80-96); MONOCYTES # (AUTO) 0.5 K/uL (0.1-1.30); MONOCYTES % (AUTO) 9.9 % (2.0-12.0); NEUTROPHILS # (AUTO) 3.8 K/uL (1.8-8.9); NEUTROPHILS % (AUTO) 75.3 % (43.0-81.0); PLATELET COUNT (AUTO) 197 K/uL (150-450); RED BLOOD CELL COUNT(AUTO) 3.16 MIL/uL (4.5-6.0)
[2022-08-16 07:19] LABS: ALBUMIN 2.4 g/dL (3.4-5.0); BILIRUBIN,TOTAL 0.4 mg/dL (0.2-1.0); CALCIUM, SERUM 8.5 mg/dL (8.5-10.1); CREATININE 2.1 mg/dL (0.6-1.3); MAGNESIUM 2.1 mg/dL (1.8-2.4); PHOSPHORUS 4.1 mg/dL (2.5-4.9); POTASSIUM 3.9 mmol/L (3.5-5.1); TOTAL PROTEIN, SERUM 7.5 g/dL (6.4-8.2)
[2022-08-16] MEDS: GLUCERNA 1.2 1,000 ML BOTTLE NG PRN (07:32)
--- NOTE | 2022-08-16 07:34 | NUR ---
RN CLOSING NOTES PATIENT AWAKE, AAO X2, MOUTHING WORDS, HAS WHITE BOARD TO MAKE NEEDS KNOWN. MV ON TRACH SHILEY#6 WITH PRESCRIBED SETTINGS: AC 18, TV 450, FIO2 35%, PEEP 5. TELE MONITOR READING SR 71 WITH PVCS. DENIES PAIN AT THIS TIME. IV ACCESS ON LILI MIDLINE SALINE LOCK, INTACT AND FLUSHING WELL. HAS BILATERAL SOFT WRIST RESTRAINTS, CHECKED FOR SKIN AND CIRCULATION. GTF RUNNING GLUCERNA AT 50 ML/HR, TOLERATING WELL, NO RESIDUAL NOTED. PETERSON CATHETER INTACT AND PATENT, DRAINING CLEAR YELLOW URINE, SLIGHTLY BLOOD TINGED. DVT PUMP ON LEFT LEG ON. FLEXISEAL NOTED, INTACT AND DRAINING WELL. ALL DUE MEDS WERE GIVEN AND NEEDS ATTENDED. SAFETY MEASURES IN PLACE: BED LOCKED AND IN LOWEST POSITION, CALL LIGHT WITHIN REACH, SIDE RAILS UP X2. ENDORSED TO AM NURSE FOR PEARL
--- NOTE | 2022-08-16 07:44 | NUR ---
POLYSOMNOGRAPHIC TECH OPENING NOTES RECEIVED ON BED, AO X2, AWAKE,MOUTHING WORDS, HAS WHITE BOARD TO MAKE NEEDS KNOWN. MV ON TRACH SHILEY#6 WITH PRESCRIBED SETTINGS: AC 18, TV 450, FIO2 35%, PEEP 5. TELE MONITOR READING SR 71 WITH PVCS. DENIES PAIN AT THIS TIME. IV ACCESS ON LILI MIDLINE SALINE LOCK, INTACT AND FLUSHING WELL. HAS BILATERAL SOFT WRIST RESTRAINTS, CHECKED FOR SKIN AND CIRCULATION. GTF RUNNING GLUCERNA AT 50 ML/HR, TOLERATING WELL, NO RESIDUAL NOTED. PETERSON CATHETER INTACT AND PATENT, DRAINING CLEAR YELLOW URINE, SLIGHTLY BLOOD TINGED. DVT PUMP ON LEFT LEG ON. FLEXISEAL NOTED, INTACT AND DRAINING WELL. SAFETY MEASURES IN PLACE: BED LOCKED AND IN LOWEST POSITION, CALL LIGHT WITHIN REACH, SIDE RAILS UP X2.
[2022-08-16] MEDS: SUCRALFATE 1 G/10 ML UDC GT SCH ×2 (08:12→21:15)
[2022-08-16] MEDS: FAMOTIDINE (20 MG) 20 MG TABLET GT SCH ×2 (08:13→21:15)
[2022-08-16] MEDS: ASPIRIN 81 MG TAB.CHEW GT SCH (08:13)
[2022-08-16] MEDS: VIT B CMPLX 3/FA/VIT C/BIOTIN 1 TAB TABLET GT SCH (08:13)
[2022-08-16] MEDS: POLYETHYLENE GLYCOL 3350 17 GM POWD.PACK GT SCH (08:13)
[2022-08-16] MEDS: DOCUSATE SODIUM LIQ 100 MG/10 ML UDC GT SCH (08:13)
[2022-08-16] MEDS: CHLORHEXIDINE GLUCONATE 15 ML UDC MM SCH ×2 (08:14→16:24)
[2022-08-16] MEDS: CARVEDILOL 12.5 MG TABLET PO SCH ×2 (08:14→21:18)
[2022-08-16] MEDS: hydrALAZINE HCL 25 MG TABLET GT SCH ×3 (08:14→16:22)
[2022-08-16] MEDS: ISOSORBIDE DINITRATE (10MG) 10 MG TABLET GT SCH ×3 (08:15→16:22)
[2022-08-16] MEDS: PROSOURCE / PROSTAT (PYXIS) 30 ML UDC GT SCH ×2 (08:16→16:57)
[2022-08-16] MEDS: INSULIN GLARGINE, 100 UNIT/ML CARTRIDGE SQ SCH ×2 (08:42→17:18)
[2022-08-16] MEDS: CLOTRIMAZOLE/BETAMETASONE DIPROPIONATE 15 GM TUBE TP SCH ×2 (10:36→18:18)
[2022-08-16] MEDS: POTASSIUM CHLORIDE 20 MEQ TAB.PRT.SR PO SCH ×3 (10:47→12:38)
[2022-08-16] MEDS: CEFTRIAXONE 1 G in IV D5W 50 ML IV SCH (11:18)
[2022-08-16] MEDS: FUROSEMIDE 40 MG/4 ML VIAL IV SCH ×3 (11:41→16:35)
[2022-08-16] MEDS ORDERED: GLUCERNA 1.2 1,000 ML BOTTLE NG PRN (14:00)
--- NOTE | 2022-08-16 18:45 | NUR ---
N CLOSING NOTES PATIENT AWAKE, AO X2, MOUTHING WORDS, HAS WHITE BOARD TO MAKE NEEDS KNOWN. MV ON TRACH SHILEY#6 WITH PRESCRIBED SETTINGS: AC 18, TV 450, FIO2 35%, PEEP 5. TELE MONITOR READING SR 71 WITH PVCS. DENIES PAIN AT THIS TIME. IV ACCESS ON LILI MIDLINE SALINE LOCK, INTACT AND FLUSHING WELL. HAS BILATERAL SOFT WRIST RESTRAINTS, CHECKED FOR SKIN AND CIRCULATION. GTF RUNNING GLUCERNA AT 50 ML/HR, TOLERATING WELL, NO RESIDUAL NOTED. PETERSON CATHETER INTACT AND PATENT, DRAINING CLEAR YELLOW URINE, SLIGHTLY BLOOD TINGED. DVT PUMP ON LEFT LEG ON. FLEXISEAL NOTED, INTACT AND DRAINING WELL. ALL DUE MEDS WERE GIVEN AND NEEDS ATTENDED. SAFETY MEASURES IN PLACE: BED LOCKED AND IN LOWEST POSITION, CALL LIGHT WITHIN REACH, SIDE RAILS UP X2. ENDORSED TO INCOMING NURSE FOR PEARL
[2022-08-16] MEDS: ATORVASTATIN 40 MG TABLET GT SCH (21:15)
[2022-08-17] VITALS: BP 152/80
[2022-08-17] MEDS: VANCOMYCIN HCL 125 MG/2.5 ML ORAL.SUSP GT SCH ×4 (00:36→17:00)
[2022-08-17] MEDS: BLOOD SUGAR DIAGNOSTIC 1 EACH STRIP IN SCH ×4 (00:40→16:50)
[2022-08-17] MEDS: INSULIN REGULAR, HUMAN 100 UNIT/ML 3 ML VIAL SQ PRN ×4 (00:42→16:50)
--- NOTE | 2022-08-17 00:42 | NUR ---
Blood sugar 127mg/dl at this time and no coverage given per slidding scale.
[2022-08-17 04:00] VITALS: BP 141/78
--- NOTE | 2022-08-17 06:23 | NUR ---
END OF SHIFT, PATIENT CONTINUE ON MECHANICAL VENTILATOR TOLERATED SETTINGS WELL, NO SOB/ACUTE DISTRESS NOTED, NSR IN TELE MONITOR WIT HR 80S AT THIS TIME, ABLE O MOUTH WORDS, GT IN PLACE AND INFUSING ORDERED, NO RESIDUAL NOTED, HOB ELEVATED AT ALL TIMES FOR ASPIRATION PRECAUTIONS, F/C IN PLACED DRAINING WELL, WITH SLIGHT BLOOD TINGED URINE, ALL SAFETY PRECAUTIONS MAINTAINED, BED LOCKED AN DIN LOWEST POSITION, S/R OF BED UPX3, BILATERAL SOFT RESTRAINS IN PLACED, NO ABNORMALITY NOTED AT SITE, FREQUENT CIRCULATION CHECKS DONE, UNABLE TO REMOVE RESTRAINS, BEHAVIOR UNCHANGED, WILL ENDORSE CONTINUITY OF CARE TO ONCOMING NURSE.
[2022-08-17 06:33] LABS: BASOPHILS % (AUTO) 0.3 % (0.0-2.0); EOSINOPHILS % (AUTO) 2.3 % (0.0-6.0); HEMATOCRIT 33 % (39-51); HEMOGLOBIN 10.3 g/dL (13.5-17.5); LYMPHOCYTES # (AUTO) 0.6 K/uL (0.8-4.8); LYMPHOCYTES % (AUTO) 9.2 % (20.0-44.0); MEAN CORPUSCULAR HGB CONC 31 g/dl (31.0-36.0); MEAN CORPUSCULAR VOLUME 90 fL (80-96); MONOCYTES # (AUTO) 0.6 K/uL (0.1-1.30); NEUTROPHILS # (AUTO) 5.2 K/uL (1.8-8.9); NEUTROPHILS % (AUTO) 79.2 % (43.0-81.0); PLATELET COUNT (AUTO) 237 K/uL (150-450); RED BLOOD CELL COUNT(AUTO) 3.66 MIL/uL (4.5-6.0); WHITE BLOOD COUNT (AUTO) 6.6 K/uL (4.3-11.0)
[2022-08-17 06:40] LABS: CREATININE 1.9 mg/dL (0.6-1.3); MAGNESIUM 2.3 mg/dL (1.8-2.4); PHOSPHORUS 4.8 mg/dL (2.5-4.9); POTASSIUM 4.5 mmol/L (3.5-5.1)
--- NOTE | 2022-08-17 06:47 | NUR ---
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
--- NOTE | 2022-08-17 07:10 | NUR ---
RN NOTES RECEIVED ON BED, AWAKE,MOUTHING WORDS, FOLLOWS COMMAND, HAS WHITE BOARD TO MAKE NEEDS KNOWN. MV ON TRACH SHILEY#6 WITH PRESCRIBED SETTINGS: AC 18, TV 450, FIO2 35%, PEEP 5. TELE MONITOR READING SR , HR IN 80'S , DENIES PAIN AT THIS TIME. IV ACCESS ON LILI MIDLINE SALINE LOCK, INTACT AND FLUSHING WELL. HAS BILATERAL SOFT WRIST RESTRAINTS, CHECKED FOR SKIN AND CIRCULATION. GTF RUNNING GLUCERNA AT 50 ML/HR, TOLERATING WELL, NO RESIDUAL NOTED. PETERSON CATHETER INTACT AND PATENT, DRAINING CLEAR YELLOW URINE, SLIGHTLY BLOOD TINGED. DVT PUMP ON LEFT LEG ON. FLEXISEAL NOTED, INTACT AND DRAINING WELL. SAFETY MEASURES IN PLACE: BED LOCKED AND IN LOWEST POSITION, CALL LIGHT WITHIN REACH, SIDE RAILS UP X2.
[2022-08-17 08:00] VITALS: BP 170/70
[2022-08-17] MEDS: CARVEDILOL 12.5 MG TABLET PO SCH ×2 (08:30→21:12)
[2022-08-17] MEDS: SUCRALFATE 1 G/10 ML UDC GT SCH ×2 (08:30→21:11)
[2022-08-17] MEDS: CHLORHEXIDINE GLUCONATE 15 ML UDC MM SCH ×2 (08:30→16:38)
[2022-08-17] MEDS: ASPIRIN 81 MG TAB.CHEW GT SCH (08:31)
[2022-08-17] MEDS: VIT B CMPLX 3/FA/VIT C/BIOTIN 1 TAB TABLET GT SCH (08:31)
[2022-08-17] MEDS: POLYETHYLENE GLYCOL 3350 17 GM POWD.PACK GT SCH (08:31)
[2022-08-17] MEDS: FAMOTIDINE (20 MG) 20 MG TABLET GT SCH ×2 (08:31→21:11)
[2022-08-17] MEDS: ISOSORBIDE DINITRATE (10MG) 10 MG TABLET GT SCH ×3 (08:32→16:37)
[2022-08-17] MEDS: DOCUSATE SODIUM LIQ 100 MG/10 ML UDC GT SCH (08:32)
[2022-08-17] MEDS: hydrALAZINE HCL 25 MG TABLET GT SCH ×3 (08:32→16:37)
[2022-08-17] MEDS: PROSOURCE / PROSTAT (PYXIS) 30 ML UDC GT SCH ×2 (08:33→16:37)
[2022-08-17] MEDS: CLOTRIMAZOLE/BETAMETASONE DIPROPIONATE 15 GM TUBE TP SCH ×2 (08:34→16:39)
[2022-08-17] MEDS: INSULIN GLARGINE, 100 UNIT/ML CARTRIDGE SQ SCH ×2 (08:34→16:49)
[2022-08-17] MEDS: FUROSEMIDE 40 MG/4 ML VIAL IV SCH ×3 (09:24→16:37)
[2022-08-17] MEDS: CEFTRIAXONE 1 G in IV D5W 50 ML IV SCH (11:38)
[2022-08-17 12:00] VITALS: BP 147/72
[2022-08-17] MEDS ORDERED: CARV12.52 PO (13:31)
[2022-08-17] MEDS ORDERED: VANC125C11 GT (13:31)
[2022-08-17] MEDS ORDERED: FURO-144 PO (13:31)
--- NOTE | 2022-08-17 14:00 | NUR ---
RN NOTES DISCHARGE ORDER RECEIVED, CASE MANAGEMENT NOTIFIED .
[2022-08-17 16:00] VITALS: BP 118/59
--- NOTE | 2022-08-17 18:30 | NUR ---
RN NOTES TRACH CARE DONE PRN , TOLERATING VENT SETTING , O2 SAT WNL, NO DISTESS NOTED, WILL ENDORSE TO THORACIC MEDICINE SPECIALIST NURSE FOR CONTINUITY OF CARE .
[2022-08-17 20:00] VITALS: BP 142/76
[2022-08-17] MEDS: ATORVASTATIN 40 MG TABLET GT SCH (21:11)
--- NOTE | 2022-08-17 22:00 | NUR ---
RN NOTES: DAUGHTER MICHAEL CALLED, GAVE HER THE UPDATES.
[2022-08-18] VITALS: BP 114/54
[2022-08-18] MEDS: BLOOD SUGAR DIAGNOSTIC 1 EACH STRIP IN SCH ×3 (00:13→12:06)
[2022-08-18] MEDS: VANCOMYCIN HCL 125 MG/2.5 ML ORAL.SUSP GT SCH ×3 (00:14→12:32)
[2022-08-18] MEDS: INSULIN REGULAR, HUMAN 100 UNIT/ML 3 ML VIAL SQ PRN ×3 (00:15→11:58)
--- NOTE | 2022-08-18 00:15 | NUR ---
RN NOTES: PT'S BLOOD SUGAR 188. 3 UNITS OF REGULAR INSULIN GIVEN. NO S/S OF HYPER/HYPOGLYCEMIA. WILL CONTINUE TO MONITOR
[2022-08-18 04:00] VITALS: BP 160/81
[2022-08-18 06:37] LABS: BASOPHILS % (AUTO) 0.3 % (0.0-2.0); EOSINOPHILS % (AUTO) 2.3 % (0.0-6.0); HEMATOCRIT 30 % (39-51); HEMOGLOBIN 9.4 g/dL (13.5-17.5); LYMPHOCYTES # (AUTO) 0.8 K/uL (0.8-4.8); LYMPHOCYTES % (AUTO) 15.2 % (20.0-44.0); MEAN CORPUSCULAR HGB CONC 32 g/dl (31.0-36.0); MEAN CORPUSCULAR VOLUME 89 fL (80-96); MONOCYTES # (AUTO) 0.7 K/uL (0.1-1.30); MONOCYTES % (AUTO) 12.4 % (2.0-12.0); NEUTROPHILS # (AUTO) 3.8 K/uL (1.8-8.9); NEUTROPHILS % (AUTO) 69.8 % (43.0-81.0); PLATELET COUNT (AUTO) 236 K/uL (150-450); RED BLOOD CELL COUNT(AUTO) 3.37 MIL/uL (4.5-6.0); WHITE BLOOD COUNT (AUTO) 5.4 K/uL (4.3-11.0)
--- NOTE | 2022-08-18 06:44 | NUR ---
RN CLOSING NOTES: PATIENT IN BED, AWAKE, ALERT/ORIENTED X1-2 WITH CONFUSION. RESPONSIVE TO PAINFUL STIMULI. ON TRACH TO MECHANICAL VENTILATOR SETTINGS. PT TOLERATED WELL. BREATHING EVEN AND UNLABORED. IV ACCESS ON LILI ML INTACT AND PATENT. GTUBE FEEDING WELL TOLERATED. RUNNING GLUCERNA 1.2 AT 50CC/HR. NO RESIDUAL NOTED.HOB ELEVATED TO PREVENT ASPIRATION. F/C IN PLACE. DRAINING WELL BY GRAVITY. NOTED SLIGHT BLOOD TINGED URINE, FLEXISEAL IN PLACE. ALL SAFETY PRECAUTIONS IN PLACE. BED IN LOWEST POSITION AND LOCKED. SIDE RAILS UP X3, ALL DUE MEDS GIVEN ORDERED. PLACE CALL LIGHT WITH IN REACH. WILL ENDORSE TO MORNING SHIFT NURSE.
[2022-08-18 07:27] LABS: ALBUMIN 2.3 g/dL (3.4-5.0); BILIRUBIN,TOTAL 0.4 mg/dL (0.2-1.0); CALCIUM, SERUM 8.5 mg/dL (8.5-10.1); CREATININE 2.1 mg/dL (0.6-1.3); MAGNESIUM 2.4 mg/dL (1.8-2.4); PHOSPHORUS 3.3 mg/dL (2.5-4.9); POTASSIUM 3.8 mmol/L (3.5-5.1); TOTAL PROTEIN, SERUM 7.5 g/dL (6.4-8.2)
[2022-08-18] MEDS: LORAZEPAM 1 MG TABLET GT PRN (08:33)
[2022-08-18] MEDS: DOCUSATE SODIUM LIQ 100 MG/10 ML UDC GT SCH (09:00)
[2022-08-18] MEDS: POLYETHYLENE GLYCOL 3350 17 GM POWD.PACK GT SCH (09:00)
[2022-08-18] MEDS: CLOTRIMAZOLE/BETAMETASONE DIPROPIONATE 15 GM TUBE TP SCH (09:00)
[2022-08-18] MEDS: VIT B CMPLX 3/FA/VIT C/BIOTIN 1 TAB TABLET GT SCH (10:27)
[2022-08-18] MEDS: SUCRALFATE 1 G/10 ML UDC GT SCH (10:27)
[2022-08-18] MEDS: CHLORHEXIDINE GLUCONATE 15 ML UDC MM SCH (10:28)
[2022-08-18] MEDS: ASPIRIN 81 MG TAB.CHEW GT SCH (10:28)
[2022-08-18] MEDS: hydrALAZINE HCL 25 MG TABLET GT SCH ×2 (10:28→16:10)
[2022-08-18] MEDS: FAMOTIDINE (20 MG) 20 MG TABLET GT SCH (10:28)
[2022-08-18] MEDS: ISOSORBIDE DINITRATE (10MG) 10 MG TABLET GT SCH ×2 (10:28→16:10)
[2022-08-18] MEDS: CARVEDILOL 12.5 MG TABLET PO SCH (10:29)
[2022-08-18] MEDS: PROSOURCE / PROSTAT (PYXIS) 30 ML UDC GT SCH (10:30)
[2022-08-18] MEDS: LORAZEPAM INJ 2 MG/ML VIAL IV PRN ×2 (11:29→19:31)
[2022-08-18] MEDS: INSULIN GLARGINE, 100 UNIT/ML CARTRIDGE SQ SCH (11:58)
[2022-08-18] MEDS: CEFTRIAXONE 1 G in IV D5W 50 ML IV SCH (12:32)
--- NOTE | 2022-08-18 17:53 | NUR ---
RN NOTE CALLED [facility] AND GAVE REPORT TO LEANN MONACO. FACILITY REQUESTED TO KEEP LILI MIDLINE IN PLACE. TYRE FINISHER AND EXAMINER TIME 1800 WITH [facility]. NOTIFED DAUGHTER MICHAEL FERRARI .
--- NOTE | 2022-08-18 19:13 | NUR ---
RN NOTE PHOTOS TAKEN PLACED IN CHART. CALLED [facility] [phone] SPOKE TO DHARMESH, SHE STATED ESTIMATED TIME OF ARRIVAL WILL BE 1929.
[2022-08-18 19:47] VITALS: BP 160/75
[2022-08-18] MEDS: CLONIDINE HCL 0.1 MG TABLET GT PRN (19:47)
--- NOTE | 2022-08-18 20:05 | NUR ---
RN NOTE PATIENT DISCHARGE VIA [facility] AT THIS TIME. LILI IV ACCESS INTACT, PATENT. PATIENT BELONGINGS ACCOUNTED FOR, PATIENT DISCHARGE PACKET GIVEN TO AMBULANCE CREW. TELE BOX REMOVED. ID BAND REMOVED. G-TUBE CLAMPED. PETERSON CATHETER IN PLACE DRAINING YELLOW URINE. VS TAKEN WNL. CHARGE NURSE AWARE.
== END 2022-08-18 20:10 | DRG 291 ==
LOC: ER 22:59 → TELE 08-08 12:26 → ICU 08-09 23:08 → TELE1 08-11 16:20
PROVIDERS: ADMIT Nurse Practitioner Acute Care; ATTEND Nurse Practitioner Acute Care
PROC: 5A1955Z Respiratory Ventilation, Greater than 96 Consecutive Hours (ICD-10-PCS; 2022-08-08)
PROC: 5A2204Z Restoration of Cardiac Rhythm, Single (ICD-10-PCS; principal; 2022-08-10)
PROC: 05H933Z Insertion of Infusion Device into Right Brachial Vein, Percutaneous Approach (ICD-10-PCS; 2022-08-10)
DX: I13.0 Hypertensive heart and chronic kidney disease with heart failure and stage 1 through stage 4 chronic kidney disease, or unspecified chronic kidney disease (principal); G93.41 Metabolic encephalopathy; I50.23 Acute on chronic systolic (congestive) heart failure; J96.20 Acute and chronic respiratory failure, unspecified whether with hypoxia or hypercapnia; N17.0 Acute kidney failure with tubular necrosis; I46.9 Cardiac arrest, cause unspecified; Z99.11 Dependence on respirator [ventilator] status; A04.72 Enterocolitis due to Clostridium difficile, not specified as recurrent; D68.59 Other primary thrombophilia; J90 Pleural effusion, not elsewhere classified; L03.116 Cellulitis of left lower limb; L03.115 Cellulitis of right lower limb; E44.0 Moderate protein-calorie malnutrition; E87.0 Hyperosmolality and hypernatremia; J98.11 Atelectasis; J39.0 Retropharyngeal and parapharyngeal abscess; I42.9 Cardiomyopathy, unspecified; E66.9 Obesity, unspecified; N18.9 Chronic kidney disease, unspecified; E11.22 Type 2 diabetes mellitus with diabetic chronic kidney disease; Z20.822 Contact with and (suspected) exposure to COVID-19; Z93.0 Tracheostomy status; Z93.1 Gastrostomy status; Z79.4 Long term (current) use of insulin; Z79.01 Long term (current) use of anticoagulants; Z79.51 Long term (current) use of inhaled steroids; Z79.82 Long term (current) use of aspirin; Z79.899 Other long term (current) drug therapy; E78.5 Hyperlipidemia, unspecified; E87.5 Hyperkalemia; D63.8 Anemia in other chronic diseases classified elsewhere; R13.10 Dysphagia, unspecified; F41.9 Anxiety disorder, unspecified; K21.9 Gastro-esophageal reflux disease without esophagitis; Z68.34 Body mass index [BMI] 34.0-34.9, adult; Z95.1 Presence of aortocoronary bypass graft; Z91.81 History of falling; Z74.01 Bed confinement status; L89.156 Pressure-induced deep tissue damage of sacral region; N27.0 Small kidney, unilateral; R31.0 Gross hematuria; L30.4 Erythema intertrigo; N20.0 Calculus of kidney; J44.9 Chronic obstructive pulmonary disease, unspecified; E87.6 Hypokalemia; I70.0 Atherosclerosis of aorta; Z74.09 Other reduced mobility; R22.1 Localized swelling, mass and lump, neck; S90.415A Abrasion, left lesser toe(s), initial encounter; X58.XXXA Exposure to other specified factors, initial encounter; S81.811A Laceration without foreign body, right lower leg, initial encounter; Y92.9 Unspecified place or not applicable; S09.90XA Unspecified injury of head, initial encounter; Y92.10 Unspecified residential institution as the place of occurrence of the external cause; W06.XXXA Fall from bed, initial encounter
CPT/HCPCS: 31720; 36415; 36600; 70450-TC; 70490-TC; 70491-TC; 71045-TC; 71250-TC; 74018; 76770-TC; 80048-TC; 80053-TC; 80061-TC; 81001; 82272-TC; 82533; 82570-TC; 82803-TC; 82962-TC; 83735-TC; 83880; 84100-TC; 84300-TC; 84443-TC; 84484-TC; 85025-TC; 87040-TC; 87081-TC; 87086-TC; 92950-TC; 93307-TC; 93970-TC; 94002-TC; 94003-TC; 94760-TC; 94762-TC; 94799-TC; 97112-TC; 97116-TC; 97530-TC; 99082-TC; A4223; A4623; A6253; A6403; A7526; C9803; G0378; J0171; J0696; J1644; J1815; J1940; J1956; J2060; J2370; J3490; J7030; J7050; J7060; Q9967